=== PATIENT | male | born 1965 | race Caucasian/White ===

== ENCOUNTER 2018-11-01 11:52 | Emergency (ER) | payer BC ==
[~2018-11-01] VITALS: Ht 185.4 cm; Wt 115.7 kg
[~2018-11-01 11:52] MED LIST: STELARA45 MG/0.5
[2018-11-01] MEDS ORDERED: Hydrochloroth12.5 MG PO (13:01)
== END 2018-11-01 13:13 | disposition home or self-care (01) ==
LOC: ER 11:52
DX: S83.8X2A Sprain of other specified parts of left knee, initial encounter (principal); I10 Essential (primary) hypertension; F17.200 Nicotine dependence, unspecified, uncomplicated; Z79.899 Other long term (current) drug therapy; X58.XXXA Exposure to other specified factors, initial encounter
CPT/HCPCS: 73562-LT; 99283-25

== ENCOUNTER 2018-11-29 17:11 | Emergency (ER) | payer BC ==
[~2018-11-29] VITALS: Ht 182.9 cm; Wt 113.4 kg
[~2018-11-29 17:11] MED LIST changes: +Hydrochloroth12.5 MG PO
[2018-11-29] MEDS ORDERED: TREMFYA100 MG/1 M SQ (17:59)
[2018-11-29 19:04] LABS: BASOPHILS ABSOLUTE AUTO 0.04 K/mm3 (0.00-0.23); BASOPHILS PERCENT AUTO 1 % (0-2); EOSINOPHILS ABSOLUTE AUTO 0.12 K/mm3 (0.00-0.68); EOSINOPHILS PERCENT AUTO 2 % (0-6); Hematocrit 45.9 % (37.0-53.0); Hemoglobin 15.9 g/dL (13.5-17.5); IMMATURE GRAN ABSOLUTE AUTO 0.01 K/mm3 (0.00-0.10); IMMATURE GRAN PERCENT AUTO 0 % (0-1); LYMPHOCYTES ABSOLUTE AUTO 1.37 K/mm3 (0.84-5.20); LYMPHOCYTES PERCENT AUTO 23 % (21-46); MONOCYTES ABSOLUTE AUTO 0.45 K/mm3 (0.16-1.47); MONOCYTES PERCENT AUTO 8 % (4-13); Mean Corpuscular HGB 34.1 pg (26.0-34.0); Mean Corpuscular HGB Conc 34.6 g/dL (31.5-36.5); Mean Corpuscular Volume 99 fL (80-100); Mean Platelet Volume 9.6 fL (9.1-12.4); NEUTROPHILS ABSOLUTE AUTO 3.87 K/mm3 (1.96-9.15); NEUTROPHILS PERCENT AUTO 66 % (41-73); Platelet Count 148 K/mm3 (150-400); RDW Coefficient Variation 12.2 % (11.7-14.2); RDW Standard Deviation 44.3 fL (35.1-46.3); Red Blood Cell Count 4.66 M/mm3 (4.30-5.90); White Blood Cell Count 5.86 K/mm3 (4.00-11.30)
[2018-11-29 19:32] LABS: Alanine Aminotransfer (ALT/SGP 86 U/L (12-78); Albumin, Blood 3.6 g/dL (3.4-5.0); Albumin/Globulin Ratio 1.1 (0.8-1.8); Alk Phos 87 U/L (50-136); Anion Gap 6 mmol/L (6-16); Aspartate Aminotrans (AST/SGOT 74 U/L (12-37); Bilirubin, Total 0.6 mg/dL (0.1-1.0); Blood Urea Nitrogen 17 mg/dL (8-24); Bun/Creatinine Ratio 22.7 (12.0-20.0); CO2, Blood 26 mmol/L (21-32); Calcium, Blood 9.3 mg/dL (8.5-10.1); Chloride, Blood 103 mmol/L (98-108); Creatinine, Blood 0.75 mg/dL (0.60-1.20); Globulin, Blood 3.4 g/dL (2.2-4.0); Glomerular Filtration Rate >60 (60-); Glucose, Blood 197 mg/dL (70-99); Potassium, Blood 3.3 mmol/L (3.5-5.5); Sodium, Blood 135 mmol/L (136-145)
[2018-11-29] MEDS ORDERED: Prinivil10 MG PO (22:32)
== END 2018-11-29 22:45 | disposition home or self-care (01) ==
LOC: ER 17:11
PROVIDERS: Physician Assistant
DX: I10 Essential (primary) hypertension (principal); L40.9 Psoriasis, unspecified; F17.200 Nicotine dependence, unspecified, uncomplicated; Z79.899 Other long term (current) drug therapy
CPT/HCPCS: 36415; 80053; 85025; 93005; 93010; 99283-25

== ENCOUNTER 2019-01-21 08:24 | Emergency (ER) | payer BC ==
[~2019-01-21] VITALS: Ht 182.9 cm; Wt 113.4 kg
[~2019-01-21 08:24] MED LIST changes: +Prinivil10 MG PO; +TREMFYA100 MG/1 M SQ
[2019-01-21] MEDS ORDERED: OTEZLA30 MG PO (08:41)
[2019-01-21] MEDS ORDERED: CEFD300 PO (08:42)
[2019-01-21] MEDS ORDERED: CEPH500 PO (09:06)
== END 2019-01-21 09:11 | disposition home or self-care (01) ==
LOC: ER 08:24
DX: L03.115 Cellulitis of right lower limb (principal); I10 Essential (primary) hypertension; F17.210 Nicotine dependence, cigarettes, uncomplicated; Z79.899 Other long term (current) drug therapy
CPT/HCPCS: 99283

== ENCOUNTER 2022-11-20 16:05 | Inpatient (IN) | payer BC ==
[~2022-11-20] VITALS: Ht 185.4 cm; Wt 102.1 kg
[~2022-11-20 16:05] MED LIST changes: +CEFD300 PO; +CEPH500 PO; +OTEZLA30 MG PO
[2022-11-20 17:04] LABS: Influenza A, PCR NEGATIVE (NEGATIVE); Influenza B, PCR NEGATIVE (NEGATIVE); Resp Syncytial Virus, PCR NEGATIVE (NEGATIVE); SARS-Cov-2 (COVID-19) PCR, MMC NEGATIVE (NEGATIVE)
[2022-11-20 17:08] LABS: BASOPHILS ABSOLUTE AUTO 0.06 K/mm3 (0.00-0.23); BASOPHILS PERCENT AUTO 1 % (0-2); EOSINOPHILS ABSOLUTE AUTO 0.04 K/mm3 (0.00-0.68); EOSINOPHILS PERCENT AUTO 0 % (0-6); Hematocrit 41.6 % (37.0-53.0); IMMATURE GRAN ABSOLUTE AUTO 0.04 K/mm3 (0.00-0.10); IMMATURE GRAN PERCENT AUTO 0 % (0-1); LYMPHOCYTES ABSOLUTE AUTO 0.76 K/mm3 (0.84-5.20); LYMPHOCYTES PERCENT AUTO 8 % (21-46); MONOCYTES ABSOLUTE AUTO 0.56 K/mm3 (0.16-1.47); MONOCYTES PERCENT AUTO 6 % (4-13); Mean Corpuscular HGB 35.2 pg (26.0-34.0); Mean Corpuscular HGB Conc 36.1 g/dL (31.5-36.5); Mean Corpuscular Volume 98 fL (80-100); Mean Platelet Volume 9.2 fL (9.1-12.4); NEUTROPHILS ABSOLUTE AUTO 7.77 K/mm3 (1.96-9.15); NEUTROPHILS PERCENT AUTO 84 % (41-73); Platelet Count 122 K/mm3 (150-400); RDW Coefficient Variation 12.3 % (11.7-14.2); RDW Standard Deviation 43.8 fL (35.1-46.3); Red Blood Cell Count 4.26 M/mm3 (4.30-5.90); White Blood Cell Count 9.23 K/mm3 (4.00-11.30)
[2022-11-20 17:24] LABS: Albumin, Blood 3.6 g/dL (3.4-5.0); Bun/Creatinine Ratio 14.3 (12.0-20.0); Calcium, Blood 9.4 mg/dL (8.5-10.1); Creatinine, Blood 0.77 mg/dL (0.60-1.20); Globulin, Blood 3.6 g/dL (2.2-4.0); Total Protein, Blood 7.2 g/dL (6.4-8.2)
[2022-11-20 20:29] LABS: Anti-Xa UFH, PHA Monitoring <0.10 IU/mL; International Normalized Ratio 1.04; Prothrombin Time Results 10.9 Sec (9.7-11.5)
[2022-11-20 23:15] VITALS: BP 157/86
--- NOTE | 2022-11-20 23:15 | NUR ---
ADMISSION REPORT RECIEVED FROM ER NURSE. PATIENT ARRIVES TO PCU 10. HEPARIN GTT STARTED BY ER. PATIENT ABLE TO AMBULATE TO PCU BED WITH NO ASSISTANCE. PATIENT IS ALERT AND ORIENTED x4, ABLE TO MAKE NEEDS KNOWN. VITALS STABLE, PATIENT REPORTS MILD CHEST DISCOMFORT. ON RA WITH O2 SAT >95%. INDEPDENDENT IN THE ROOM. ORIENTED TO ROOM AND CALL LIGHT SYSTEM. EDUCATED PATIENT ON IGNITION RISKS, PATIENT VERBALIZED UNDERSTANDING AND REPORTS NO IGNITION SOURCES.
[2022-11-21] VITALS (9 sets, daily range): BP systolic 109–157; BP diastolic 65–88
[2022-11-21 03:21] LABS: BASOPHILS ABSOLUTE AUTO 0.03 K/mm3 (0.00-0.23); BASOPHILS PERCENT AUTO 1 % (0-2); EOSINOPHILS ABSOLUTE AUTO 0.11 K/mm3 (0.00-0.68); EOSINOPHILS PERCENT AUTO 2 % (0-6); Hematocrit 38.3 % (37.0-53.0); Hemoglobin 13.6 g/dL (13.5-17.5); IMMATURE GRAN ABSOLUTE AUTO 0.03 K/mm3 (0.00-0.10); IMMATURE GRAN PERCENT AUTO 1 % (0-1); LYMPHOCYTES ABSOLUTE AUTO 1.04 K/mm3 (0.84-5.20); LYMPHOCYTES PERCENT AUTO 16 % (21-46); MONOCYTES ABSOLUTE AUTO 0.42 K/mm3 (0.16-1.47); MONOCYTES PERCENT AUTO 6 % (4-13); Mean Corpuscular HGB 35.1 pg (26.0-34.0); Mean Corpuscular HGB Conc 35.5 g/dL (31.5-36.5); Mean Corpuscular Volume 99 fL (80-100); Mean Platelet Volume 9.5 fL (9.1-12.4); NEUTROPHILS ABSOLUTE AUTO 4.96 K/mm3 (1.96-9.15); NEUTROPHILS PERCENT AUTO 75 % (41-73); Platelet Count 99 K/mm3 (150-400); RDW Coefficient Variation 12.3 % (11.7-14.2); RDW Standard Deviation 44.5 fL (35.1-46.3); Red Blood Cell Count 3.87 M/mm3 (4.30-5.90); White Blood Cell Count 6.59 K/mm3 (4.00-11.30)
[2022-11-21 03:40] LABS: Albumin, Blood 2.9 g/dL (3.4-5.0); Albumin/Globulin Ratio 0.8 (0.8-1.8); Bilirubin, Total 1.2 mg/dL (0.1-1.0); Bun/Creatinine Ratio 12.1 (12.0-20.0); Calcium, Blood 8.7 mg/dL (8.5-10.1); Creatinine, Blood 0.75 mg/dL (0.60-1.20); Globulin, Blood 3.7 g/dL (2.2-4.0); Potassium, Blood 3.5 mmol/L (3.5-5.5); Total Protein, Blood 6.6 g/dL (6.4-8.2)
--- NOTE | 2022-11-21 05:52 | NUR ---
SHIFT SUMMARY PATIENT ALERT AND ORIENTED x4, ABLE TO MAKE NEEDS KNOWN TO STAFF. BP STABLE, TELE READING SR-ST 90s-100s, ON RA WITH O2 SAT >95%. REPORTED MILD CHEST PAIN ON ADMISSION BUT NONE SINCE. HEPARIN GTT INFUSING PER EMAR. PATIENT INDEPENDENT IN THE ROOM. AMBULATING TO BATHROOM WITHOUT ASSSISTANCE, ADEQUATE OUTPUT. NPO SINCE 0000 PENDING CARDIOLOGY CONSULT. NO OTHER CHANGES SINCE ADMISSION. WILL REPORT TO DAY SHIFT RN.
[2022-11-21 08:12] LABS: CHOL/HDL RATIO 2.1; Cholesterol 136 mg/dL (50-200); HDL Cholesterol 66 mg/dL (>39); LDL/HDL RATIO 0.8; Low Density Lipoprotein Chol 50 mg/dL (0-110); Triglycerides 99 mg/dL (30-160); Very Low Density Lipoprot Chol 19 mg/dL (6-32)
--- NOTE | 2022-11-21 14:25 | NUR ---
POST ANGIO PT RETURNED FROM HIS ANGIO AT ABOUT 1100. HE HAS A RIGHT RADIAL SITE WITH 11 CC IN THE TR BAND. NO SIGNS OF HEMATOMA, BLEEDING, SWELLING, OR N/T. WE WERE TOLD TO WAIT AT LEAST THREE HOURS BEFORE DEFLATING DUE TO AN ACT >300. AT 1415 I STARTED TO DEFLATE THE BALLOON. EDUCATION PROVIDED. SEE NOTES FOR ANY UPDATES.
--- NOTE | 2022-11-21 16:38 | NUR ---
TR BAND RECOVERED. SLIGHT OOZING AT THE SIGHT. NO BLEEDING, HEMATOMA, BRUISING, OR PAIN. SITE CLEANED AND A TEGADERM WAS PLACED. ARM BOARD IN PLACE.
--- NOTE | 2022-11-21 17:31 | NUR ---
SHIFT SUMMARY PT IS A&OX4, IND IN THE ROOM, CIWA-0, AND HE HAS BEEN VERY PLEASENT. HE WENT TO THE CONVERSION MAN THIS MORNING FOR A ANGIOGRAM AND HE OBTAINED A STENT TO THE RCA. TR BAND IS FULLY RECOVERED. AN ECHO WAS DONE THIS MORNING PRIOR TO THE ANGIO. ON TELE THE PT HAS BEEN SR 80'S-90'S ON TELE. HE HAS BEEN ON RA WITH SP02 >95%. NO REPORTS OF ANGINA OR SOB. PT IS A DAILY SMOKER SO A NICOTINE PATCH WAS PROVIDED. FIRE IRGNITION RISK WAS ASSESSED AND EDUCATION WAS PROVIDED. NO KNOWN IGNITION SOURCES.
[2022-11-22 00:36] VITALS: BP 94/62
[2022-11-22 04:22] VITALS: BP 118/72
[2022-11-22 04:53] LABS: BASOPHILS ABSOLUTE AUTO 0.03 K/mm3 (0.00-0.23); BASOPHILS PERCENT AUTO 1 % (0-2); EOSINOPHILS ABSOLUTE AUTO 0.15 K/mm3 (0.00-0.68); EOSINOPHILS PERCENT AUTO 3 % (0-6); Hematocrit 38.7 % (37.0-53.0); Hemoglobin 13.9 g/dL (13.5-17.5); IMMATURE GRAN ABSOLUTE AUTO 0.02 K/mm3 (0.00-0.10); IMMATURE GRAN PERCENT AUTO 0 % (0-1); LYMPHOCYTES ABSOLUTE AUTO 0.86 K/mm3 (0.84-5.20); LYMPHOCYTES PERCENT AUTO 17 % (21-46); MONOCYTES ABSOLUTE AUTO 0.36 K/mm3 (0.16-1.47); MONOCYTES PERCENT AUTO 7 % (4-13); Mean Corpuscular HGB 35.6 pg (26.0-34.0); Mean Corpuscular HGB Conc 35.9 g/dL (31.5-36.5); Mean Corpuscular Volume 99 fL (80-100); Mean Platelet Volume 9.3 fL (9.1-12.4); NEUTROPHILS ABSOLUTE AUTO 3.55 K/mm3 (1.96-9.15); NEUTROPHILS PERCENT AUTO 72 % (41-73); Platelet Count 104 K/mm3 (150-400); RDW Coefficient Variation 12.6 % (11.7-14.2); White Blood Cell Count 4.97 K/mm3 (4.00-11.30)
[2022-11-22 05:30] LABS: Bun/Creatinine Ratio 14.2 (12.0-20.0); Calcium, Blood 8.6 mg/dL (8.5-10.1); Creatinine, Blood 0.77 mg/dL (0.60-1.20); Potassium, Blood 3.3 mmol/L (3.5-5.5)
--- NOTE | 2022-11-22 06:02 | NUR ---
SHIFT SUMMARY PATIENT ALERT AND ORIENTED x4, INDEPENDENT IN THE ROOM, ABLE TO MAKE NEEDS KNOWN TO STAFF. CIWA NEGATIVE DURING THE NIGHT. VITALS STABLE T/O NIGHT, PATIENT REMAINED ON RA WITH O2 SAT >95%. ANGIO SITE TO RIGHT WRIST, SOFT, TEGADERM IN PLACE IS C/D/I, NO SIGNS OF HEMATOMA, ARM BOARD IN PLACE. AMBULATING TO BATHROOM INDEPENDENTLY WITH ADEQUATE OUTPUT. NO IGNITION SOURCES NOTED, PATIENT PROVIDED WITH NICOTINE REPLACEMENT DURING PREVIOUS SHIFT. NO OTHER SIGNIFICANT CHANGES, WILL REPORT TO DAY SHIFT RN.
[2022-11-22 07:24] VITALS: BP 151/91
[2022-11-22 09:45] VITALS: BP 127/46
[2022-11-22 11:40] VITALS: BP 133/84
[2022-11-22] MEDS ORDERED: LISI5 PO (12:51)
[2022-11-22] MEDS ORDERED: ASPI81CH PO (12:51)
[2022-11-22] MEDS ORDERED: METO25ER PO (12:51)
[2022-11-22] MEDS ORDERED: ATOR10 PO (12:51)
[2022-11-22] MEDS ORDERED: NICO21TP TOP (12:51)
[2022-11-22] MEDS ORDERED: FURO20 PO (12:51)
[2022-11-22] MEDS ORDERED: CLOP75 PO (12:51)
--- NOTE | 2022-11-22 13:22 | NUR ---
DISCHARGE PT DISCHARGED FROM UNIT AT 1318. BILATERAL IV CATHETERS REMOVED BY THIS RN, CATHETER TIPS INTACT. VSS. PT ABLE TO DRESS SELF INDEPENDENTLY. DISCHARGE INSTRUCTIONS AND EDUCATION REVIEWED AND DISCUSSED WITH PT BY THIS RN. PT VOICED UNDERSTANDING OF INFORMATION. PT AMBULATED TO PRIVATE VEHICLE INDEPENDENTLY.
== END 2022-11-22 13:18 | disposition home or self-care (01) | DRG 247 ==
LOC: ER 16:05 → PCU 16:06
PROVIDERS: Emergency Medicine; Internal Medicine Cardiovascular Disease; Student in an Organized Health Care Education/Training Program; ADMIT Internal Medicine
PROC: 027034Z Dilation of Coronary Artery, One Artery with Drug-eluting Intraluminal Device, Percutaneous Approach (ICD-10-PCS; principal; 2022-11-21)
PROC: B2111ZZ Fluoroscopy of Multiple Coronary Arteries using Low Osmolar Contrast (ICD-10-PCS; 2022-11-21)
PROC: 4A023N7 Measurement of Cardiac Sampling and Pressure, Left Heart, Percutaneous Approach (ICD-10-PCS; 2022-11-21)
PROC: B241ZZ3 Ultrasonography of Multiple Coronary Arteries, Intravascular (ICD-10-PCS; 2022-11-21)
DX: I21.4 Non-ST elevation (NSTEMI) myocardial infarction (principal); I50.30 Unspecified diastolic (congestive) heart failure; F17.210 Nicotine dependence, cigarettes, uncomplicated; E87.6 Hypokalemia; D69.6 Thrombocytopenia, unspecified; R00.2 Palpitations; L40.9 Psoriasis, unspecified; I35.0 Nonrheumatic aortic (valve) stenosis; I11.0 Hypertensive heart disease with heart failure; E78.5 Hyperlipidemia, unspecified; I49.3 Ventricular premature depolarization; R73.01 Impaired fasting glucose; R74.01 Elevation of levels of liver transaminase levels; F10.20 Alcohol dependence, uncomplicated; Z20.822 Contact with and (suspected) exposure to COVID-19; I25.2 Old myocardial infarction; Z95.5 Presence of coronary angioplasty implant and graft; Z71.6 Tobacco abuse counseling; Z95.1 Presence of aortocoronary bypass graft; E66.3 Overweight; Z88.8 Allergy status to other drugs, medicaments and biological substances; Z91.048 Other nonmedicinal substance allergy status; Z79.811 Long term (current) use of aromatase inhibitors; Z68.29 Body mass index [BMI] 29.0-29.9, adult
CPT/HCPCS: 0241U; 36415; 71046; 76937; 80048; 80053; 80061; 83036; 84443; 84450; 84460; 84484; 85025; 85347; 85520; 85610; 85730; 92978; 93005; 93010; 93306; 93458; 96365; 96375; 96376; 99152; 99153; 99285-25; A9270; C1725; C1753; C1769; C1874; C1887; C1894; C9600; G0378; J0461; J1644; J1940; J2250; J3010; J7030; J7050; Q9967

== ENCOUNTER 2023-07-03 17:31 | Emergency (ER) | payer BC ==
[~2023-07-03] VITALS: Ht 185.4 cm; Wt 106.6 kg
[~2023-07-03 17:31] MED LIST changes: +ASPI81CH PO; +ATOR10 PO; +CLOP75 PO; +FURO20 PO; +LISI5 PO; +METO25ER PO; +NICO21TP TOP
[2023-07-03] MEDS ORDERED: Oxymetazoline 0.05% Nasal Relief Spray 15mL BTL ONE (19:45)
[2023-07-03 19:49] VITALS: BP 171/95
== END 2023-07-03 20:24 | disposition home or self-care (01) ==
LOC: ER 17:31
DX: R04.0 Epistaxis (principal); Z79.01 Long term (current) use of anticoagulants; Z79.82 Long term (current) use of aspirin; Z95.5 Presence of coronary angioplasty implant and graft
CPT/HCPCS: 30903; 99283-25; A9270

== ENCOUNTER 2023-07-05 09:31 | Emergency (ER) | payer BC ==
[~2023-07-05] VITALS: Ht 185.4 cm; Wt 104.3 kg
[2023-07-05 10:12] VITALS: BP 172/93
[2023-07-05] MEDS ORDERED: Silver Nitr/Potassium Nitrate 1 EA APPL TOP ONE (10:55)
[2023-07-05] MEDS ORDERED: Oxymetazoline 0.05% Nasal Relief Spray 15mL BTL ONE (10:55)
== END 2023-07-05 12:03 | disposition home or self-care (01) ==
LOC: ER 09:31
DX: R04.0 Epistaxis (principal); I10 Essential (primary) hypertension; L40.9 Psoriasis, unspecified; F17.210 Nicotine dependence, cigarettes, uncomplicated; Z88.8 Allergy status to other drugs, medicaments and biological substances; Z91.048 Other nonmedicinal substance allergy status; Z79.899 Other long term (current) drug therapy; Z79.82 Long term (current) use of aspirin; Z79.02 Long term (current) use of antithrombotics/antiplatelets
CPT/HCPCS: 30901; 99283-25; A9270

== ENCOUNTER 2023-10-30 01:17 | Inpatient (IN) | payer BC ==
[~2023-10-30] VITALS: Ht 185.4 cm; Wt 104.4 kg
[2023-10-30] VITALS (7 sets, daily range): BP systolic 116–159; BP diastolic 67–108
[~2023-10-30 01:17] MED LIST changes: +ELIQUIS5 M2 PO
[2023-10-30] MEDS ORDERED: Metoprolol Tartrate 1 MG/ML 5 ML VIAL IV ONE (01:55)
[2023-10-30 02:07] LABS: Albumin, Blood 3.2 g/dL (3.4-5.0); Albumin/Globulin Ratio 0.9 (0.8-1.8); Bilirubin, Total 0.9 mg/dL (0.1-1.0); Bun/Creatinine Ratio 18.6 (12.0-20.0); Calcium, Blood 8.9 mg/dL (8.5-10.1); Creatinine, Blood 0.81 mg/dL (0.60-1.20); Globulin, Blood 3.7 g/dL (2.2-4.0); Magnesium, Blood 1.8 mg/dL (1.6-2.4); Potassium, Blood 4.4 mmol/L (3.5-5.5); Total Protein, Blood 6.9 g/dL (6.4-8.2)
[2023-10-30 02:21] LABS: BASOPHILS ABSOLUTE AUTO 0.04 K/mm3 (0.00-0.23); BASOPHILS PERCENT AUTO 1 % (0-2); EOSINOPHILS ABSOLUTE AUTO 0.16 K/mm3 (0.00-0.68); EOSINOPHILS PERCENT AUTO 4 % (0-6); Hematocrit 34.3 % (37.0-53.0); IMMATURE GRAN ABSOLUTE AUTO 0.01 K/mm3 (0.00-0.10); IMMATURE GRAN PERCENT AUTO 0 % (0-1); LYMPHOCYTES ABSOLUTE AUTO 1.07 K/mm3 (0.84-5.20); LYMPHOCYTES PERCENT AUTO 29 % (21-46); MONOCYTES ABSOLUTE AUTO 0.32 K/mm3 (0.16-1.47); MONOCYTES PERCENT AUTO 9 % (4-13); Mean Corpuscular HGB 35.6 pg (26.0-34.0); Mean Corpuscular Volume 102 fL (80-100); Mean Platelet Volume 10.1 fL (9.1-12.4); NEUTROPHILS ABSOLUTE AUTO 2.04 K/mm3 (1.96-9.15); NEUTROPHILS PERCENT AUTO 56 % (41-73); Platelet Count 78 K/mm3 (150-400); RDW Coefficient Variation 15.9 % (11.7-14.2); RDW Standard Deviation 60.3 fL (35.1-46.3); Red Blood Cell Count 3.37 M/mm3 (4.30-5.90); White Blood Cell Count 3.64 K/mm3 (4.00-11.30)
[2023-10-30] MEDS ORDERED: Aspirin 325 MG Tab PO ONE (04:55)
[2023-10-30] MEDS ORDERED: ELIQUIS5 M2 PO (05:54)
[2023-10-30] MEDS ORDERED: ChlordiazePOXIDE 25 MG Cap PO PRN ×2 (06:00)
[2023-10-30] MEDS ORDERED: LORazepam 2 MG/ML 1ML Injection IV PRN ×2 (06:00)
[2023-10-30] MEDS ORDERED: Folic Acid 1 MG in NS 50 ML IV SCH (07:30)
[2023-10-30] MEDS ORDERED: Thiamine HCl 100 MG in NS 50 ML IV SCH (07:30)
[2023-10-30] MEDS ORDERED: Metoprolol Succinate 25 MG TABCR PO SCH ×2 (09:00)
[2023-10-30] MEDS ORDERED: Apixaban 5 MG Tab PO SCH (09:00)
[2023-10-30] MEDS ORDERED: Digoxin 0.25 MG in Dextrose 5% 100 ML IV SCH (09:00)
[2023-10-30] MEDS ORDERED: Digoxin 0.25 MG/ML 2ML Amp IV SCH (09:00)
[2023-10-30] MEDS ORDERED: Lisinopril 5 MG Tab PO SCH (09:00)
[2023-10-30] MEDS ORDERED: Furosemide 10 MG/ML 4ML Vial IV SCH (09:00)
[2023-10-30] MEDS ORDERED: Nicotine 21 MG PATCH TOP SCH (09:00)
[2023-10-30] MEDS ORDERED: Aspirin 81 MG Chew PO SCH (09:00)
[2023-10-30] MEDS ORDERED: Empagliflozin 10 MG TAB PO SCH (09:00)
[2023-10-30] MEDS ORDERED: Albuterol 2.5 MG/3 ML VIAL INH PRN (15:15)
[2023-10-30] MEDS ORDERED: Mag Sulfate 1 GM/D5% 100ML 100 ML IV ONE (16:10)
--- NOTE | 2023-10-30 17:14 | NUR ---
ARRIVAL TO PCU 11/SHIFT SUMMARY PT ARRIVED TO PCU 11 AT APPROXIMATELY 1500. PT TRANSFERED FROM ER [facility] TO HOSPITAL BED IND. ARRIVED ON DILT gtt @ 10, AFIB 110's. BP STALBE, DENIES CP/PRESSURE. SpO2> 92% RA, DENIES SOB. A&Ox4, ORIENTED TO DEEPTI LIGHT/UNIT, CALLS AND COMMUNICATES NEEDS APPROPRIATELY. IND IN ROOM. CONTINENT OF URINE, USING URINAL AT BEDSIDE. HR UP TO 150 WHEN USING URINAL, BACK DOWN TO 100's QUICKLY AFTER RESTING. NO C/O PAIN. SEE CRITICAL CARE FLOWSHEET FOR DILT gtt TITRATION. NO OTHER EVENTS, WILL REPORT TO ONCOMING RN.
[2023-10-30] MEDS ORDERED: Cephalexin Monohydrate 500 MG Cap PO SCH (21:00)
[2023-10-30] MEDS ORDERED: Atorvastatin 10 MG Tab PO SCH (21:00)
[2023-10-31] VITALS (7 sets, daily range): BP systolic 117–148; BP diastolic 79–91
[2023-10-31] MEDS ORDERED: Metoprolol Succinate 50 MG TABCR PO SCH ×2 (10:00→20:30)
[2023-10-31 10:10] LABS: BASOPHILS ABSOLUTE AUTO 0.04 K/mm3 (0.00-0.23); BASOPHILS PERCENT AUTO 1 % (0-2); EOSINOPHILS ABSOLUTE AUTO 0.11 K/mm3 (0.00-0.68); EOSINOPHILS PERCENT AUTO 3 % (0-6); Hematocrit 32.8 % (37.0-53.0); Hemoglobin 11.1 g/dL (13.5-17.5); IMMATURE GRAN ABSOLUTE AUTO 0.01 K/mm3 (0.00-0.10); IMMATURE GRAN PERCENT AUTO 0 % (0-1); LYMPHOCYTES ABSOLUTE AUTO 0.71 K/mm3 (0.84-5.20); LYMPHOCYTES PERCENT AUTO 20 % (21-46); MONOCYTES ABSOLUTE AUTO 0.39 K/mm3 (0.16-1.47); MONOCYTES PERCENT AUTO 11 % (4-13); Mean Corpuscular HGB 34.3 pg (26.0-34.0); Mean Corpuscular HGB Conc 33.8 g/dL (31.5-36.5); Mean Corpuscular Volume 101 fL (80-100); Mean Platelet Volume 10.2 fL (9.1-12.4); NEUTROPHILS ABSOLUTE AUTO 2.29 K/mm3 (1.96-9.15); NEUTROPHILS PERCENT AUTO 65 % (41-73); Platelet Count 75 K/mm3 (150-400); RDW Coefficient Variation 15.9 % (11.7-14.2); RDW Standard Deviation 59.2 fL (35.1-46.3); Red Blood Cell Count 3.24 M/mm3 (4.30-5.90); White Blood Cell Count 3.55 K/mm3 (4.00-11.30)
[2023-10-31 10:19] LABS: Albumin, Blood 2.9 g/dL (3.4-5.0); Albumin/Globulin Ratio 0.9 (0.8-1.8); Bilirubin, Total 1.3 mg/dL (0.1-1.0); Bun/Creatinine Ratio 12.8 (12.0-20.0); Calcium, Blood 8.5 mg/dL (8.5-10.1); Creatinine, Blood 0.78 mg/dL (0.60-1.20); Globulin, Blood 3.3 g/dL (2.2-4.0); Magnesium, Blood 1.7 mg/dL (1.6-2.4); Phosphorus, Blood 2.6 mg/dL (2.5-4.9); Potassium, Blood 3.5 mmol/L (3.5-5.5); Total Protein, Blood 6.2 g/dL (6.4-8.2)
[2023-10-31] MEDS ORDERED: Magnesium Sulf 2 GM/Water 50ML 50 ML IV ONE (13:10)
--- NOTE | 2023-10-31 17:36 | NUR ---
SHIFT SUMMARY A&Ox4, CALLS AND COMMUNICATES NEEDS APPROPRIATELY. IND IN ROOM. CONTINENT OF URINE, USING URINAL IN BATHROOM. BP STABLE, AFIB 90-110's AT REST, UP TO 130's WITH ACTIVITY, BACK DOWN TO 100's QUICKLY AFTER RESTING. DENIES CP/PRESSURE. SpO2> 92% RA, DENIES SOB. NO C/O PAIN. NO OTHER EVENTS, WILL REPORT TO ONCOMING RN.
[2023-11-01 03:44] VITALS: BP 158/99
[2023-11-01 03:57] LABS: BASOPHILS ABSOLUTE AUTO 0.06 K/mm3 (0.00-0.23); BASOPHILS PERCENT AUTO 1 % (0-2); EOSINOPHILS ABSOLUTE AUTO 0.12 K/mm3 (0.00-0.68); EOSINOPHILS PERCENT AUTO 2 % (0-6); Hematocrit 38.1 % (37.0-53.0); Hemoglobin 13.1 g/dL (13.5-17.5); IMMATURE GRAN ABSOLUTE AUTO 0.02 K/mm3 (0.00-0.10); IMMATURE GRAN PERCENT AUTO 0 % (0-1); LYMPHOCYTES ABSOLUTE AUTO 0.77 K/mm3 (0.84-5.20); LYMPHOCYTES PERCENT AUTO 16 % (21-46); MONOCYTES ABSOLUTE AUTO 0.53 K/mm3 (0.16-1.47); MONOCYTES PERCENT AUTO 11 % (4-13); Mean Corpuscular HGB 35.2 pg (26.0-34.0); Mean Corpuscular HGB Conc 34.4 g/dL (31.5-36.5); Mean Corpuscular Volume 102 fL (80-100); Mean Platelet Volume 9.6 fL (9.1-12.4); NEUTROPHILS ABSOLUTE AUTO 3.46 K/mm3 (1.96-9.15); NEUTROPHILS PERCENT AUTO 70 % (41-73); Platelet Count 88 K/mm3 (150-400); RDW Coefficient Variation 16.1 % (11.7-14.2); RDW Standard Deviation 60.2 fL (35.1-46.3); Red Blood Cell Count 3.72 M/mm3 (4.30-5.90); White Blood Cell Count 4.96 K/mm3 (4.00-11.30)
[2023-11-01 04:17] LABS: Albumin, Blood 3.4 g/dL (3.4-5.0); Albumin/Globulin Ratio 0.9 (0.8-1.8); Bilirubin, Total 1.7 mg/dL (0.1-1.0); Bun/Creatinine Ratio 11.5 (12.0-20.0); Creatinine, Blood 0.87 mg/dL (0.60-1.20); Globulin, Blood 3.9 g/dL (2.2-4.0); Magnesium, Blood 2.2 mg/dL (1.6-2.4); Potassium, Blood 3.9 mmol/L (3.5-5.5); Total Protein, Blood 7.3 g/dL (6.4-8.2)
--- NOTE | 2023-11-01 04:47 | NUR ---
PT A/OX4 USES THE CALL LIGHT APPROPRIATELY TO MAKE NEEDS KNOWN. CIWAS HAVE BEEN NEGATIVE. HE IS IN AFIB WITH RATE INCREASING WITH ACTIVITY AND THEN RECOVERS QUICKLY WITH REST. AT APPROX 2AM HE FLIPPED INTO AFLUTTER AND BACK TO AFIB. HE STATED HE FELT PALPATATIONS. HE IS ON RA WITH SPO2 >95%, DENIES SOB. HE IS IND IN ROOM. HE DENIES PAIN. WILL CONTINUE TO MONITOR AND REPORT TO ONCOMING RN
[2023-11-01 08:43] VITALS: BP 124/80
[2023-11-01] MEDS ORDERED: Folic Acid 1 MG TAB PO SCH (09:00)
[2023-11-01] MEDS ORDERED: Multivitamins-Minerals Liquid 15 ML Oral Syringe PO SCH (09:00)
[2023-11-01] MEDS ORDERED: Thiamine HCl 100 MG Tab PO SCH (09:00)
[2023-11-01] MEDS ORDERED: Lisinopril 10 MG Tab PO SCH (09:00)
[2023-11-01] MEDS ORDERED: Clopidogrel Bisulfate 75 MG Tab PO SCH (09:00)
[2023-11-01] MEDS ORDERED: ChlordiazePOXIDE 25 MG Cap PO ONE (11:10)
[2023-11-01 13:52] VITALS: BP 115/62
[2023-11-01] MEDS ORDERED: ELIQUIS5 M2 PO (14:35)
[2023-11-01] MEDS ORDERED: CHLO25 PO (14:37)
[2023-11-01] MEDS ORDERED: Hair, Skin & N1 EACH PO (14:38)
[2023-11-01] MEDS ORDERED: JARDIANCE10 MG PO (14:38)
[2023-11-01] MEDS ORDERED: FOLI1 PO (14:38)
[2023-11-01] MEDS ORDERED: NICO21TP TOP (14:38)
[2023-11-01] MEDS ORDERED: B-1100 M1 PO (14:39)
[2023-11-01] MEDS ORDERED: Naltrexone HCl50 MG PO (14:40)
--- NOTE | 2023-11-01 15:25 | NUR ---
Discharge. Pt discharged at 1512, all discharge instructions given prior to discharge, PIV removed. Pt verbalized understanding of all discharge information given. All personal belongings sent home with patient. Pt walked out of unit with spouse.
[2023-11-02] MEDS ORDERED: Multivitamins 1 Tab PO SCH (09:00)
== END 2023-11-01 15:15 | disposition home or self-care (01) | DRG 281 ==
LOC: ER 01:17 → ERHOLD 01:18 → PCU 14:55
PROVIDERS: Hospitalist; Student in an Organized Health Care Education/Training Program; ADMIT Family Medicine
DX: I48.0 Paroxysmal atrial fibrillation (principal); D61.818 Other pancytopenia; I21.A1 Myocardial infarction type 2; I50.32 Chronic diastolic (congestive) heart failure; L03.116 Cellulitis of left lower limb; F10.20 Alcohol dependence, uncomplicated; I25.10 Atherosclerotic heart disease of native coronary artery without angina pectoris; F17.210 Nicotine dependence, cigarettes, uncomplicated; L40.9 Psoriasis, unspecified; I35.0 Nonrheumatic aortic (valve) stenosis; D69.59 Other secondary thrombocytopenia; I11.0 Hypertensive heart disease with heart failure; D53.9 Nutritional anemia, unspecified; Z91.148 Patient's other noncompliance with medication regimen for other reason; Z88.8 Allergy status to other drugs, medicaments and biological substances; Z91.048 Other nonmedicinal substance allergy status; Z79.01 Long term (current) use of anticoagulants; Z79.02 Long term (current) use of antithrombotics/antiplatelets; Z79.899 Other long term (current) drug therapy; Z79.82 Long term (current) use of aspirin; I25.2 Old myocardial infarction; Z95.5 Presence of coronary angioplasty implant and graft
CPT/HCPCS: 36415; 71046; 71260; 73552; 80053; 82607; 82746; 83690; 83735; 83880; 84100; 84484; 85025; 93005; 93010; 93306; 93970; 94640; 94664; 94760; 94762; 96365; 96365-59; 96366; 96368; 96375; 96375-59; 96376; 99285-25; A9270; G0378; J1160; J1940; J3411; J3475; Q9967

== ENCOUNTER 2024-04-07 09:03 | Inpatient (IN) | payer BC ==
[~2024-04-07] VITALS: Ht 185.4 cm; Wt 116.9 kg
[~2024-04-07 09:03] MED LIST changes: +B-1100 M1 PO; +CHLO25 PO; +FOLI1 PO; +Hair, Skin & N1 EACH PO; +JARDIANCE10 MG PO; +Naltrexone HCl50 MG PO
[2024-04-07 11:08] LABS: BASOPHILS ABSOLUTE AUTO 0.01 K/mm3 (0.00-0.23); BASOPHILS PERCENT AUTO 0 % (0-2); EOSINOPHILS ABSOLUTE AUTO 0.04 K/mm3 (0.00-0.68); EOSINOPHILS PERCENT AUTO 1 % (0-6); IMMATURE GRAN ABSOLUTE AUTO 0.02 K/mm3 (0.00-0.10); IMMATURE GRAN PERCENT AUTO 1 % (0-1); LYMPHOCYTES ABSOLUTE AUTO 0.68 K/mm3 (0.84-5.20); LYMPHOCYTES PERCENT AUTO 19 % (21-46); MONOCYTES ABSOLUTE AUTO 0.46 K/mm3 (0.16-1.47); MONOCYTES PERCENT AUTO 13 % (4-13); Mean Corpuscular HGB 29.9 pg (26.0-34.0); Mean Corpuscular HGB Conc 31.3 g/dL (31.5-36.5); Mean Corpuscular Volume 96 fL (80-100); Mean Platelet Volume 10.4 fL (9.1-12.4); NEUTROPHILS ABSOLUTE AUTO 2.41 K/mm3 (1.96-9.15); NEUTROPHILS PERCENT AUTO 67 % (41-73); Platelet Count 109 K/mm3 (150-400); RDW Coefficient Variation 16.7 % (11.7-14.2); Red Blood Cell Count 1.84 M/mm3 (4.30-5.90); White Blood Cell Count 3.62 K/mm3 (4.00-11.30)
[2024-04-07 11:16] LABS: Hematocrit 17.6 % (37.0-53.0)
[2024-04-07] MEDS ORDERED: TORSE20 PO (11:22)
[2024-04-07] MEDS ORDERED: Betapace120 MG PO (11:23)
[2024-04-07 11:31] LABS: Hemoglobin 5.5 g/dL (13.5-17.5)
[2024-04-07 11:32] LABS: Albumin, Blood 2.9 g/dL (3.4-5.0); Albumin/Globulin Ratio 0.8 (0.8-1.8); Bilirubin, Total 0.8 mg/dL (0.1-1.0); Bun/Creatinine Ratio 38.9 (12.0-20.0); Calcium, Blood 8.8 mg/dL (8.5-10.1); Creatinine, Blood 2.47 mg/dL (0.60-1.20); Globulin, Blood 3.8 g/dL (2.2-4.0); Potassium, Blood 4.5 mmol/L (3.5-5.5); Total Protein, Blood 6.7 g/dL (6.4-8.2)
[2024-04-07] MEDS ORDERED: NS 1,000 ML IV SCH (12:05)
[2024-04-07] MEDS ORDERED: FLU VACC TS2024-25(6MOS UP)/PF 45 MCG/0.5 ML SYRINGE IM SCH (13:35)
[2024-04-07 13:42] LABS: International Normalized Ratio 1.23
[2024-04-07 14:00] LABS: Percent Saturation 3.4 % (20.0-50.0)
[2024-04-07] MEDS ORDERED: ChlordiazePOXIDE 25 MG Cap PO PRN ×2 (14:10)
[2024-04-07] MEDS ORDERED: LORazepam 2 MG/ML 1ML Injection IV PRN (14:10)
[2024-04-07] MEDS ORDERED: Pantoprazole Sodium 40 MG Tab PO SCH (16:30)
[2024-04-07] MEDS ORDERED: FURO20 PO (19:34)
[2024-04-07] MEDS ORDERED: Naltrexone HCl50 MG PO (19:35)
[2024-04-07] MEDS ORDERED: ATOR40TA PO (19:36)
[2024-04-07] MEDS ORDERED: Prinivil10 MG PO (19:37)
[2024-04-07 20:17] VITALS: BP 131/66
[2024-04-07] MEDS ORDERED: Sotalol HCl 80 MG Tab PO SCH (21:00)
[2024-04-07] MEDS ORDERED: Atorvastatin 10 MG Tab PO SCH (21:00)
[2024-04-07] MEDS ORDERED: Apixaban 5 MG Tab PO SCH (21:00)
[2024-04-08 03:12] VITALS: BP 99/62
--- NOTE | 2024-04-08 05:20 | NUR ---
Pt admitted from ED with LISA. Pt A&O x4, independent, VS WNL, tele NSR. denies pain, using urinal d/t 24 hr urine, which began at 2350 on 04/07. CWA 0 this am, denies any issue. Awaiting labs this am to check Hgb.
[2024-04-08 06:20] LABS: BASOPHILS ABSOLUTE AUTO 0.01 K/mm3 (0.00-0.23); BASOPHILS PERCENT AUTO 0 % (0-2); EOSINOPHILS ABSOLUTE AUTO 0.05 K/mm3 (0.00-0.68); EOSINOPHILS PERCENT AUTO 2 % (0-6); Hematocrit 20.6 % (37.0-53.0); Hemoglobin 6.6 g/dL (13.5-17.5); IMMATURE GRAN ABSOLUTE AUTO 0.01 K/mm3 (0.00-0.10); IMMATURE GRAN PERCENT AUTO 0 % (0-1); LYMPHOCYTES PERCENT AUTO 23 % (21-46); MONOCYTES ABSOLUTE AUTO 0.48 K/mm3 (0.16-1.47); MONOCYTES PERCENT AUTO 16 % (4-13); Mean Corpuscular HGB 29.6 pg (26.0-34.0); Mean Corpuscular Volume 92 fL (80-100); NEUTROPHILS ABSOLUTE AUTO 1.84 K/mm3 (1.96-9.15); NEUTROPHILS PERCENT AUTO 60 % (41-73); Platelet Count 104 K/mm3 (150-400); RDW Coefficient Variation 16.7 % (11.7-14.2); RDW Standard Deviation 54.9 fL (35.1-46.3); Red Blood Cell Count 2.23 M/mm3 (4.30-5.90); White Blood Cell Count 3.09 K/mm3 (4.00-11.30)
--- NOTE | 2024-04-08 06:28 | NUR ---
lab reveal hgb 6.6, MD paged.
[2024-04-08 06:36] LABS: International Normalized Ratio 1.24; Prothrombin Time Results 13.1 Sec (9.7-11.5)
[2024-04-08 07:17] VITALS: BP 116/65
[2024-04-08 07:33] LABS: Magnesium, Blood 1.8 mg/dL (1.6-2.4)
[2024-04-08 07:46] LABS: Albumin, Blood 2.8 g/dL (3.4-5.0); Albumin/Globulin Ratio 0.8 (0.8-1.8); Bilirubin, Total 1.2 mg/dL (0.1-1.0); Calcium, Blood 8.5 mg/dL (8.5-10.1); Creatinine, Blood 1.87 mg/dL (0.60-1.20); Globulin, Blood 3.7 g/dL (2.2-4.0); Phosphorus, Blood 4.7 mg/dL (2.5-4.9); Potassium, Blood 4.3 mmol/L (3.5-5.5); Total Protein, Blood 6.5 g/dL (6.4-8.2)
[2024-04-08] MEDS ORDERED: Nicotine 21 MG PATCH TOP SCH (09:00)
[2024-04-08] MEDS ORDERED: Folic Acid 1 MG TAB PO SCH (09:00)
[2024-04-08] MEDS ORDERED: Bumetanide 0.25 MG/ML 4ML ViaL IV SCH (09:00)
[2024-04-08] MEDS ORDERED: Thiamine HCl 100 MG Tab PO SCH (09:00)
[2024-04-08] MEDS ORDERED: Clopidogrel Bisulfate 75 MG Tab PO SCH (09:00)
[2024-04-08] MEDS ORDERED: Polyethylene Glycol 3350 17 gm PO PRN (13:10)
[2024-04-08 13:30] LABS: BASOPHILS ABSOLUTE AUTO 0.02 K/mm3 (0.00-0.23); BASOPHILS PERCENT AUTO 1 % (0-2); EOSINOPHILS ABSOLUTE AUTO 0.04 K/mm3 (0.00-0.68); EOSINOPHILS PERCENT AUTO 1 % (0-6); Hematocrit 22.3 % (37.0-53.0); IMMATURE GRAN ABSOLUTE AUTO 0.01 K/mm3 (0.00-0.10); IMMATURE GRAN PERCENT AUTO 0 % (0-1); LYMPHOCYTES ABSOLUTE AUTO 0.57 K/mm3 (0.84-5.20); LYMPHOCYTES PERCENT AUTO 17 % (21-46); MONOCYTES ABSOLUTE AUTO 0.58 K/mm3 (0.16-1.47); MONOCYTES PERCENT AUTO 18 % (4-13); Mean Corpuscular HGB 29.2 pg (26.0-34.0); Mean Corpuscular HGB Conc 31.4 g/dL (31.5-36.5); Mean Corpuscular Volume 93 fL (80-100); Mean Platelet Volume 9.7 fL (9.1-12.4); NEUTROPHILS ABSOLUTE AUTO 2.08 K/mm3 (1.96-9.15); NEUTROPHILS PERCENT AUTO 63 % (41-73); Platelet Count 109 K/mm3 (150-400); RDW Coefficient Variation 17.1 % (11.7-14.2); RDW Standard Deviation 57.5 fL (35.1-46.3)
--- NOTE | 2024-04-08 14:41 | NUR ---
NOTE PT ABD FIRM, PT REPORTS NO ABD PAIN. HBG WAS 6.6. REPORTED LAB TO DR. OROZCO, DR. OROZCO ORDERED MORE LABS ON PT, REPORTED NO NEED TO GIVE BLOOD NOW. DR. OROZCO STATED IT WAS OK TO HOLD ELIQUIS. NEW LABS SHOW HBG IS 7.
--- NOTE | 2024-04-08 15:08 | NUR ---
NOTE CALLED DR. OROZCO DUE TO PT REPORTING CRAMPING IN HANDS AND R CALF. NO NEW ORDERS AT THIS TIME. REPORTED PT HBG IS NOW 7.0, DR. OROZCO REPORTED TO D/C KELSEY FOR NOW UNTIL HBG IS STABLE.
[2024-04-08 15:31] VITALS: BP 105/61
[2024-04-08] MEDS ORDERED: NS 250 ML IV PRN (17:15)
--- NOTE | 2024-04-08 17:24 | NUR ---
NOTE PT REPORTS HAVING A BOWEL MOVEMENT, PT REPORTS LOOKS BROWN AND LIKE HIS USUAL BM'S. EDUCATED PT NEXT TIME HAVE BM, LET NURSE KNOW TO VISUALIZE.
--- NOTE | 2024-04-08 17:44 | NUR ---
SHIFT SUMMARY PT A&OX4. PT ADMITTED DUE TO LISA. PT REPORTS NO PAIN. PT REPORTS SWELLING IN BLE AND ABD. KNEE HIGH ANTI-EMBOLIC STOCKING APPLIED TO LOWER EXTREMITIES. PT ON TELE. CIWA IS O, PT HAS NO S/S OF WITHDRAWL, PT REPORTS LAST DRINK WAS WEDNESDAY NIGHT. PT INDEPENDENT IN ROOM. IV IRON INFUSING. PT ON ROOM AIR. PT HAD BM TODAY. PT EATS ADEQUATE. BED IN LOWEST POSITION. PT CALLS APPROPRIATE, CALL LIGHT IN REACH. VSS.
[2024-04-08] MEDS ORDERED: Sod Ferric Gluc Complx/Sucrose 125 MG in NS 100 ML IV SCH (18:00)
[2024-04-08 19:23] VITALS: BP 124/57
[2024-04-09 02:02] LABS: Protein, Urine Quantitative 12.1 mg/dL (0.0-11.9)
[2024-04-09 03:03] VITALS: BP 109/67
--- NOTE | 2024-04-09 05:00 | NUR ---
Pt A&O x4, VS WNL, tele NSR with BBB in 70's. CWA negative this shift. independent with mobility, UOP WNL, 24hr urine completed and proteine levels elevated. denies pain. BM x1 on 04/08. PO intake adequate. Edema now mid calf to waist, and only 2+, remains on diuretics.
[2024-04-09 07:14] LABS: Albumin, Blood 2.8 g/dL (3.4-5.0); Anion Gap 11 mmol/L (3-11); Blood Urea Nitrogen 68 mg/dL (8-24); CO2, Blood 22 mmol/L (21-32); Calcium, Blood 8.8 mg/dL (8.5-10.1); Chloride, Blood 112 mmol/L (98-108); Glomerular Filtration Rate 46 (60-); Glucose, Blood 102 mg/dL (70-99); Magnesium, Blood 1.6 mg/dL (1.6-2.4); Phosphorus, Blood 3.9 mg/dL (2.5-4.9); Potassium, Blood 4.2 mmol/L (3.5-5.5); Sodium, Blood 141 mmol/L (136-145)
[2024-04-09 07:35] VITALS: BP 113/68
[2024-04-09] MEDS ORDERED: Bumetanide 1 MG Tab PO SCH (09:00)
--- NOTE | 2024-04-09 09:04 | NUR ---
NOTE DR. LUCAS ROUNDED, CLEARED PT. REPORTED PT CAN SEE [facility] ON WEDNESDAY AT 2PM. DR. LUCAS GAVE VERBAL ORDER TO D/C IV BUMEX AND GIVE 2MG DAILY BUMEX PO.
--- NOTE | 2024-04-09 13:41 | NUR ---
NOTE ASSESSED SYMPTOMS OF ALCOHOL WITHDRAWL. CIWA SCORE WAS A 0. NO S/S OF WITHDRAWL AT THIS TIME. WILL CONT. TO MONITOR.
[2024-04-09 14:13] LABS: BASOPHILS ABSOLUTE AUTO 0.02 K/mm3 (0.00-0.23); BASOPHILS PERCENT AUTO 1 % (0-2); EOSINOPHILS ABSOLUTE AUTO 0.07 K/mm3 (0.00-0.68); EOSINOPHILS PERCENT AUTO 2 % (0-6); Hematocrit 23.3 % (37.0-53.0); Hemoglobin 7.2 g/dL (13.5-17.5); IMMATURE GRAN ABSOLUTE AUTO 0.01 K/mm3 (0.00-0.10); IMMATURE GRAN PERCENT AUTO 0 % (0-1); LYMPHOCYTES ABSOLUTE AUTO 0.59 K/mm3 (0.84-5.20); LYMPHOCYTES PERCENT AUTO 17 % (21-46); MONOCYTES ABSOLUTE AUTO 0.61 K/mm3 (0.16-1.47); MONOCYTES PERCENT AUTO 17 % (4-13); Mean Corpuscular HGB Conc 30.9 g/dL (31.5-36.5); Mean Corpuscular Volume 94 fL (80-100); Mean Platelet Volume 9.6 fL (9.1-12.4); NEUTROPHILS ABSOLUTE AUTO 2.28 K/mm3 (1.96-9.15); NEUTROPHILS PERCENT AUTO 64 % (41-73); Platelet Count 125 K/mm3 (150-400); RDW Coefficient Variation 16.6 % (11.7-14.2); RDW Standard Deviation 56.5 fL (35.1-46.3); Red Blood Cell Count 2.48 M/mm3 (4.30-5.90); White Blood Cell Count 3.58 K/mm3 (4.00-11.30)
[2024-04-09] MEDS ORDERED: CLOP75 PO (16:15)
[2024-04-09] MEDS ORDERED: PANT40 PO (16:18)
[2024-04-09 16:40] VITALS: BP 106/63
[2024-04-09 16:41] VITALS: BP 107/66
--- NOTE | 2024-04-09 16:53 | NUR ---
NOTE [facility] IS PT PREFERED [facility]. [facility] IS CLOSED. PT REFUSED TO GO TO ANOTHER PHARMACY, PT HAS SOTALOL AND PROTONIX BID. DR. OROZCO NOTIFIED. DR. OROZCO OK WITH PT RECEIVING BOTH DOSES BEFORE HE LEFT. PT VITAL SIGNS OK TO GIVE.
[2024-04-09] MEDS ORDERED: BUME2 PO (17:16)
--- NOTE | 2024-04-09 17:34 | NUR ---
DISCHARGE NOTE PT A&OX4. PT ADMITTED FOR LISA. REPEAT LABS SHOWED HBG WAS 7.2. DR. OROZCO CLEARED PT FOR DISCHARGE. PT AMBULATORY IN ROOM. PT EATS ADEQUATE. VSS. IV D/C, TELE D/C. NICOTINE PATCH REMOVED. PT REPORTS NO CHEST DISCOMFORT OR SOB. PT NO SYMPTOMS OF ALCOHOL WITHDRAWL PRESENT. EDUCATED PT ON DISCHARGE INSTRUCTIONS AND MEDS. MEDS FAXED TO [facility] PT REPORTED "WILL FOLLOW UP WITH DR. LUCAS AND PCP AND GET LABS COMPLETE, AND TAKE MEDS PRESCRIBED TOMORROW." PT TOOK ALL PERSONAL BELONGINGS. PT ESCORTED BY RADIO INTELLIGENCE OPERATOR VIA WHEELCHAIR.
== END 2024-04-09 17:28 | disposition home or self-care (01) | DRG 683 ==
LOC: ER 09:03 → ERHOLD 13:34 → MEDS 13:34
PROVIDERS: Internal Medicine Nephrology; Student in an Organized Health Care Education/Training Program; ADMIT Family Medicine
PROC: 30233N1 Transfusion of Nonautologous Red Blood Cells into Peripheral Vein, Percutaneous Approach (ICD-10-PCS; principal; 2024-04-07)
DX: N17.9 Acute kidney failure, unspecified (principal); E87.1 Hypo-osmolality and hyponatremia; I13.0 Hypertensive heart and chronic kidney disease with heart failure and stage 1 through stage 4 chronic kidney disease, or unspecified chronic kidney disease; I50.32 Chronic diastolic (congestive) heart failure; E78.5 Hyperlipidemia, unspecified; I48.91 Unspecified atrial fibrillation; I25.10 Atherosclerotic heart disease of native coronary artery without angina pectoris; I35.0 Nonrheumatic aortic (valve) stenosis; N18.9 Chronic kidney disease, unspecified; K70.9 Alcoholic liver disease, unspecified; F10.10 Alcohol abuse, uncomplicated; E88.09 Other disorders of plasma-protein metabolism, not elsewhere classified; D63.1 Anemia in chronic kidney disease; F17.290 Nicotine dependence, other tobacco product, uncomplicated; L40.9 Psoriasis, unspecified; R73.03 Prediabetes; Z95.5 Presence of coronary angioplasty implant and graft; Z91.09 Other allergy status, other than to drugs and biological substances; Z88.8 Allergy status to other drugs, medicaments and biological substances; Z79.01 Long term (current) use of anticoagulants; Z79.899 Other long term (current) drug therapy
CPT/HCPCS: 36415; 36430; 71046; 76770; 80053; 80069; 82272; 82550; 82607; 82746; 83540; 83550; 83735; 83880; 84100; 84156; 85018; 85025; 85610; 85730; 86850; 86900; 86901; 86923; 93005; 93010; 93308; 93321; 99285-25; A9270; J2916; J7030; J7050; P9016

== ENCOUNTER 2024-05-02 12:40 | Emergency (ER) | payer BC ==
[~2024-05-02] VITALS: Ht 185.4 cm; Wt 117.9 kg
[~2024-05-02 12:40] MED LIST changes: +ATOR40TA PO; +BUME2 PO; +Betapace120 MG PO; +PANT40 PO; +TORSE20 PO
[2024-05-02 13:08] LABS: BASOPHILS ABSOLUTE AUTO 0.03 K/mm3 (0.00-0.23); BASOPHILS PERCENT AUTO 1 % (0-2); EOSINOPHILS ABSOLUTE AUTO 0.08 K/mm3 (0.00-0.68); EOSINOPHILS PERCENT AUTO 1 % (0-6); Hematocrit 22.5 % (37.0-53.0); Hemoglobin 6.8 g/dL (13.5-17.5); IMMATURE GRAN ABSOLUTE AUTO 0.01 K/mm3 (0.00-0.10); IMMATURE GRAN PERCENT AUTO 0 % (0-1); LYMPHOCYTES ABSOLUTE AUTO 0.76 K/mm3 (0.84-5.20); LYMPHOCYTES PERCENT AUTO 14 % (21-46); MONOCYTES ABSOLUTE AUTO 0.76 K/mm3 (0.16-1.47); MONOCYTES PERCENT AUTO 14 % (4-13); Mean Corpuscular HGB 26.8 pg (26.0-34.0); Mean Corpuscular HGB Conc 30.2 g/dL (31.5-36.5); Mean Corpuscular Volume 89 fL (80-100); Mean Platelet Volume 9.7 fL (9.1-12.4); NEUTROPHILS ABSOLUTE AUTO 4.01 K/mm3 (1.96-9.15); NEUTROPHILS PERCENT AUTO 71 % (41-73); Platelet Count 131 K/mm3 (150-400); RDW Coefficient Variation 16.3 % (11.7-14.2); RDW Standard Deviation 53.2 fL (35.1-46.3); Red Blood Cell Count 2.54 M/mm3 (4.30-5.90); White Blood Cell Count 5.65 K/mm3 (4.00-11.30)
[2024-05-02 13:30] LABS: Albumin, Blood 3.1 g/dL (3.4-5.0); Albumin/Globulin Ratio 0.7 (0.8-1.8); Bilirubin, Total 1.3 mg/dL (0.1-1.0); Bun/Creatinine Ratio 30.2 (12.0-20.0); Calcium, Blood 9.4 mg/dL (8.5-10.1); Creatinine, Blood 1.39 mg/dL (0.60-1.20); Globulin, Blood 4.4 g/dL (2.2-4.0); Potassium, Blood 3.8 mmol/L (3.5-5.5); Total Protein, Blood 7.5 g/dL (6.4-8.2)
[2024-05-02 15:30] VITALS: BP 121/70
[2024-05-02] MEDS ORDERED: Furosemide 10 MG/ML 10ML Vial IV ONE (15:35)
== END 2024-05-02 16:00 | disposition home or self-care (01) ==
LOC: ER 12:40
PROVIDERS: Physician Assistant
DX: R60.0 Localized edema (principal); I11.0 Hypertensive heart disease with heart failure; I50.30 Unspecified diastolic (congestive) heart failure; F17.220 Nicotine dependence, chewing tobacco, uncomplicated; Z88.8 Allergy status to other drugs, medicaments and biological substances; Z91.048 Other nonmedicinal substance allergy status; Z79.01 Long term (current) use of anticoagulants; Z79.899 Other long term (current) drug therapy
CPT/HCPCS: 71046; 80053; 82140; 83690; 83880; 84484; 85025; 93005; 93010; 96374; 99284-25; J1940

== ENCOUNTER 2024-05-20 12:47 | Inpatient (IN) | payer BC ==
[~2024-05-20] VITALS: Ht 185.4 cm; Wt 124.1 kg
[~2024-05-20 12:47] MED LIST changes: -Betapace120 MG PO; +SOTO80 PO
[2024-05-20 13:19] LABS: BASOPHILS ABSOLUTE AUTO 0.02 K/mm3 (0.00-0.23); BASOPHILS PERCENT AUTO 0 % (0-2); EOSINOPHILS ABSOLUTE AUTO 0.05 K/mm3 (0.00-0.68); EOSINOPHILS PERCENT AUTO 1 % (0-6); Hematocrit 21.6 % (37.0-53.0); Hemoglobin 6.6 g/dL (13.5-17.5); IMMATURE GRAN ABSOLUTE AUTO 0.02 K/mm3 (0.00-0.10); IMMATURE GRAN PERCENT AUTO 0 % (0-1); LYMPHOCYTES ABSOLUTE AUTO 0.28 K/mm3 (0.84-5.20); LYMPHOCYTES PERCENT AUTO 5 % (21-46); MONOCYTES ABSOLUTE AUTO 0.26 K/mm3 (0.16-1.47); MONOCYTES PERCENT AUTO 5 % (4-13); Mean Corpuscular HGB 24.4 pg (26.0-34.0); Mean Corpuscular HGB Conc 30.6 g/dL (31.5-36.5); Mean Corpuscular Volume 80 fL (80-100); Mean Platelet Volume 9.9 fL (9.1-12.4); NEUTROPHILS ABSOLUTE AUTO 5.03 K/mm3 (1.96-9.15); NEUTROPHILS PERCENT AUTO 89 % (41-73); Platelet Count 132 K/mm3 (150-400); RDW Coefficient Variation 17.2 % (11.7-14.2); RDW Standard Deviation 49.9 fL (35.1-46.3); White Blood Cell Count 5.66 K/mm3 (4.00-11.30)
[2024-05-20 13:33] LABS: Albumin/Globulin Ratio 0.7 (0.8-1.8); Bilirubin, Total 1.6 mg/dL (0.1-1.0); Bun/Creatinine Ratio 26.4 (12.0-20.0); Calcium, Blood 8.5 mg/dL (8.5-10.1); Creatinine, Blood 2.5 mg/dL (0.60-1.20); Globulin, Blood 4.3 g/dL (2.2-4.0); Potassium, Blood 2.5 mmol/L (3.5-5.5); Total Protein, Blood 7.3 g/dL (6.4-8.2)
[2024-05-20] MEDS ORDERED: Acetaminophen 325 MG TABLET PO ONE (13:35)
[2024-05-20] MEDS ORDERED: Potassium Chloride 20 MEQ TabCR PO ONE (13:55)
[2024-05-20] MEDS ORDERED: Potassium Acetate 20 MEQ in NS 100 ML IV ONE (13:55)
[2024-05-20] MEDS ORDERED: Potassium Chloride 20 MEQ in NS 90 ML IV ONE ×2 (14:05→21:00)
[2024-05-20 14:11] LABS: Influenza A, PCR NEGATIVE (NEGATIVE); Influenza B, PCR NEGATIVE (NEGATIVE); Resp Syncytial Virus, PCR NEGATIVE (NEGATIVE); SARS-Cov-2 (COVID-19) PCR, MMC NEGATIVE (NEGATIVE)
[2024-05-20] MEDS ORDERED: NS 1,000 ML IV SCH (14:20)
[2024-05-20 14:31] LABS: Source, Urine Clean Catch
[2024-05-20 14:35] LABS: Appearance, Urine Clear (Clear); Bilirubin, Urine Neg (Neg); Blood, Urine Neg (Neg); Color, Urine Yellow (P-Yellow); Glucose Qualitative, Urine Neg (Neg); Ketones, Urine Neg (Neg); Leukocyte Esterase, Urine 2+ (Neg); Nitrite, Urine Neg (Neg); Protein, Urine 2+ (Neg); Specific Gravity, Urine 1.015 (1.003-1.022); Urobilinogen, Urine NORM (Normal)
[2024-05-20 14:47] LABS: Bacteria Mod /hpf; Red Blood Cells, Urine 0-2 /hpf (0-2); Squamous Epithelial Cells Few /hpf (Few)
[2024-05-20] MEDS ORDERED: ChlordiazePOXIDE 25 MG Cap PO PRN (15:45)
[2024-05-20] MEDS ORDERED: FLU VACC TS2024-25(6MOS UP)/PF 45 MCG/0.5 ML SYRINGE IM SCH (15:45)
[2024-05-20] MEDS ORDERED: LORazepam 2 MG/ML 1ML Injection IV PRN (15:50)
[2024-05-20] MEDS ORDERED: Folic Acid 1 MG in NS 50 ML IV SCH (16:00)
[2024-05-20] MEDS ORDERED: Thiamine HCl 100 MG in NS 50 ML IV SCH (16:00)
[2024-05-20 16:08] LABS: Percent Saturation 5.7 % (20.0-50.0)
[2024-05-20] MEDS ORDERED: Pantoprazole Sodium 40 MG Injection IV SCH (16:30)
[2024-05-20] MEDS ORDERED: CefTRIAXone Sodium 1,000 MG in NS 100 ML IV SCH (18:00)
[2024-05-20 18:08] VITALS: BP 106/66
[2024-05-20] MEDS ORDERED: METO5 PO (18:22)
[2024-05-20] MEDS ORDERED: THERA-D2000 UNIT PO (18:23)
--- NOTE | 2024-05-20 18:43 | NUR ---
PATIENT TO FLOOR 1802. A/O X4. CALLED DR GALAN FOR BLOOD PRODUCT ORDERS, STATED HE HAD ER PLACE THEM ALREADY, INFORMED HIM THERE WAS NO ORDER CURRENTLY. ORDER WAS PLACED. STARTED IV ABX. ON 2 LITERS NASAL CANNULA, BASELINE ROOM AIR.
[2024-05-20] MEDS ORDERED: NS 500 ML IV SCH (18:45)
[2024-05-20 18:56] LABS: Albumin, Blood 2.7 g/dL (3.4-5.0); Anion Gap 14 mmol/L (3-11); Blood Urea Nitrogen 65 mg/dL (8-24); Bun/Creatinine Ratio 24.3 (12.0-20.0); CO2, Blood 34 mmol/L (21-32); Calcium, Blood 8.5 mg/dL (8.5-10.1); Chloride, Blood 86 mmol/L (98-108); Creatinine, Blood 2.67 mg/dL (0.60-1.20); Glomerular Filtration Rate 27 (60-); Glucose, Blood 145 mg/dL (70-99); Magnesium, Blood 2.5 mg/dL (1.6-2.4); Phosphorus, Blood 4.4 mg/dL (2.5-4.9); Potassium, Blood 2.8 mmol/L (3.5-5.5); Sodium, Blood 131 mmol/L (136-145)
[2024-05-20] MEDS ORDERED: Potassium Chloride 10 Meq Tablet SA PO ONE (20:55)
[2024-05-20] MEDS ORDERED: Metoprolol Succinate 50 MG TABCR PO SCH (21:00)
[2024-05-20] MEDS ORDERED: Sotalol HCl 80 MG Tab PO SCH (21:00)
[2024-05-20] MEDS ORDERED: Darbepoetin Alfa In Albumn Sol 60 MCG/0.3 ML Syringe SC SCH (21:00)
[2024-05-20 21:12] VITALS: BP 102/58
[2024-05-20 21:38] VITALS: BP 113/63
[2024-05-20] MEDS ORDERED: Benzonatate 100 MG Cap PO PRN (22:00)
[2024-05-20 22:38] VITALS: BP 106/65
[2024-05-20] MEDS ORDERED: Guaifenesin/Dextromethorphan Syrup 5 ML UDC PO PRN (23:10)
[2024-05-20 23:25] VITALS: BP 103/68
[2024-05-21] VITALS (9 sets, daily range): BP systolic 98–113; BP diastolic 56–70
[2024-05-21] MEDS ORDERED: Sod Ferric Gluc Complx/Sucrose 125 MG in NS 100 ML IV SCH (00:09)
[2024-05-21 05:57] LABS: Hematocrit 22.5 % (37.0-53.0); Hemoglobin 6.9 g/dL (13.5-17.5)
[2024-05-21 06:18] LABS: Albumin, Blood 2.8 g/dL (3.4-5.0); Albumin/Globulin Ratio 0.7 (0.8-1.8); Bilirubin, Direct 0.8 mg/dL (0.0-0.3); Bilirubin, Indirect 1.4 mg/dL (0.1-0.7); Bilirubin, Total 2.2 mg/dL (0.1-1.0); Bun/Creatinine Ratio 22.4 (12.0-20.0); Calcium, Blood 8.1 mg/dL (8.5-10.1); Creatinine, Blood 3.12 mg/dL (0.60-1.20); Magnesium, Blood 2.4 mg/dL (1.6-2.4); Phosphorus, Blood 4.5 mg/dL (2.5-4.9); Potassium, Blood 2.9 mmol/L (3.5-5.5); Thyroid Stimulating Hormone 1.32 uIU/mL (0.360-4.800); Total Protein, Blood 6.8 g/dL (6.4-8.2); Uric Acid, Blood 14.7 mg/dL (3.5-7.2)
[2024-05-21] MEDS ORDERED: Potassium Chl 10MEQ/Water100ML 100 ML IV SCH (08:00)
[2024-05-21] MEDS ORDERED: Spironolactone 25 MG Tab PO SCH ×2 (09:00)
[2024-05-21] MEDS ORDERED: Clopidogrel Bisulfate 75 MG Tab PO SCH (09:00)
[2024-05-21] MEDS ORDERED: Heparin Sodium 5000 Units/ML 1ML MDV SC SCH (09:00)
[2024-05-21] MEDS ORDERED: Atorvastatin 10 MG Tab PO SCH (09:00)
[2024-05-21 11:13] LABS: Stool Occult Blood Guaiac 1 Pos (Neg)
--- NOTE | 2024-05-21 12:31 | NUR ---
SPOKE WITH DR GANN WHO WAS OKAY WITH HOLDING SOTALOL TODAY AND GIVING METOPROLOL. BUT GIVE SOTALOL TOMORROW AND DC METOPROLOL FOR FUTURE.
[2024-05-21 12:49] LABS: Albumin, Blood 2.9 g/dL (3.4-5.0); Anion Gap 13 mmol/L (3-11); Blood Urea Nitrogen 72 mg/dL (8-24); Bun/Creatinine Ratio 22.1 (12.0-20.0); CO2, Blood 31 mmol/L (21-32); Chloride, Blood 88 mmol/L (98-108); Creatinine, Blood 3.26 mg/dL (0.60-1.20); Glomerular Filtration Rate 21 (60-); Glucose, Blood 128 mg/dL (70-99); Magnesium, Blood 2.6 mg/dL (1.6-2.4); Potassium, Blood 3.3 mmol/L (3.5-5.5); Sodium, Blood 129 mmol/L (136-145)
[2024-05-21] MEDS ORDERED: Potassium Chl 20MEQ/Water100ML 100 ML IV ONE (13:05)
[2024-05-21] MEDS ORDERED: Albumin (Human) 12.5gm/250ml 250 ML IV ONE (13:05)
[2024-05-21] MEDS ORDERED: Potassium Chloride 10 Meq Tablet SA PO ONE (13:05)
[2024-05-21] MEDS ORDERED: Bumetanide 0.25 MG/ML 10ML Vial IV ONE (13:05)
[2024-05-21] MEDS ORDERED: Albumin Human 50 ML IV ONE (13:10)
[2024-05-21] MEDS ORDERED: Nicotine 21 MG PATCH TOP ONE (15:00)
--- NOTE | 2024-05-21 18:54 | NUR ---
SHIFT SUMMARY RECEIVED 1 UNIT PRBC WITHOUT COMPLICATIONS. VSS. REQUIRED MEDICATION X2 PER CIWA SCORING. ABLE TO SIT IN CHAIR LATER IN SHIFT. CONTINUES TO REQUIRE 2 LITERS NC. VITAMINS AND ELECTROLYTES REPLACED VIA IV. 24 HOUR URINE STARTED. TELE CALLED SEVERAL TIMES FOR MISALIGNED PATCHES.
[2024-05-22 03:46] VITALS: BP 105/62
[2024-05-22 07:48] VITALS: BP 141/84
[2024-05-22 07:55] LABS: BASOPHILS ABSOLUTE AUTO 0.03 K/mm3 (0.00-0.23); BASOPHILS PERCENT AUTO 1 % (0-2); EOSINOPHILS ABSOLUTE AUTO 0.09 K/mm3 (0.00-0.68); EOSINOPHILS PERCENT AUTO 1 % (0-6); IMMATURE GRAN ABSOLUTE AUTO 0.03 K/mm3 (0.00-0.10); IMMATURE GRAN PERCENT AUTO 1 % (0-1); LYMPHOCYTES ABSOLUTE AUTO 0.65 K/mm3 (0.84-5.20); LYMPHOCYTES PERCENT AUTO 10 % (21-46); MONOCYTES ABSOLUTE AUTO 0.74 K/mm3 (0.16-1.47); MONOCYTES PERCENT AUTO 12 % (4-13); Mean Corpuscular HGB 25.2 pg (26.0-34.0); Mean Corpuscular HGB Conc 30.8 g/dL (31.5-36.5); Mean Corpuscular Volume 82 fL (80-100); Mean Platelet Volume 10.1 fL (9.1-12.4); NEUTROPHILS ABSOLUTE AUTO 4.73 K/mm3 (1.96-9.15); NEUTROPHILS PERCENT AUTO 75 % (41-73); Platelet Count 107 K/mm3 (150-400); RDW Coefficient Variation 16.7 % (11.7-14.2); Red Blood Cell Count 3.17 M/mm3 (4.30-5.90); White Blood Cell Count 6.27 K/mm3 (4.00-11.30)
[2024-05-22 08:18] LABS: Albumin, Blood 3.1 g/dL (3.4-5.0); Albumin/Globulin Ratio 0.8 (0.8-1.8); Bilirubin, Indirect 0.9 mg/dL (0.1-0.7); Bilirubin, Total 1.9 mg/dL (0.1-1.0); Bun/Creatinine Ratio 20.9 (12.0-20.0); Calcium, Blood 8.7 mg/dL (8.5-10.1); Creatinine, Blood 3.74 mg/dL (0.60-1.20); Globulin, Blood 4.1 g/dL (2.2-4.0); Potassium, Blood 3.6 mmol/L (3.5-5.5); Total Protein, Blood 7.2 g/dL (6.4-8.2)
[2024-05-22] MEDS ORDERED: Spironolactone 25 MG Tab PO SCH (09:00)
[2024-05-22] MEDS ORDERED: Potassium Chloride 20 MEQ TabCR PO SCH ×3 (09:00→12:00)
[2024-05-22] MEDS ORDERED: Nicotine 21 MG PATCH TOP SCH (09:00)
[2024-05-22] MEDS ORDERED: Bumetanide 0.25 MG/ML 4ML ViaL IV SCH (09:00)
[2024-05-22 16:22] VITALS: BP 84/47
--- NOTE | 2024-05-22 18:20 | NUR ---
PT AT START OF SHIFT WAS PULLING EVERYTHING OFF OF HIM AND TRYING TO GET OUT OF BED. CHARGE NURSE NOTIFIED AND HAD A SITTER COME IN [place] 1000. CIWA HAS TRENDED DOWN. SEE EMAR FOR ATIVAN FREQUENCY. SINCE 1030 PT HAS BEEN INTERMITTANTLY LETHARGIC WITH NO APPETITE.
[2024-05-22 19:37] VITALS: BP 76/49
[2024-05-22 20:22] VITALS: BP 110/70
[2024-05-22 23:35] VITALS: BP 105/63
[2024-05-23 04:17] VITALS: BP 108/67
[2024-05-23 05:56] LABS: BASOPHILS ABSOLUTE AUTO 0.02 K/mm3 (0.00-0.23); BASOPHILS PERCENT AUTO 0 % (0-2); EOSINOPHILS ABSOLUTE AUTO 0.12 K/mm3 (0.00-0.68); EOSINOPHILS PERCENT AUTO 2 % (0-6); Hematocrit 25.8 % (37.0-53.0); Hemoglobin 7.9 g/dL (13.5-17.5); IMMATURE GRAN ABSOLUTE AUTO 0.04 K/mm3 (0.00-0.10); IMMATURE GRAN PERCENT AUTO 1 % (0-1); LYMPHOCYTES ABSOLUTE AUTO 0.83 K/mm3 (0.84-5.20); LYMPHOCYTES PERCENT AUTO 12 % (21-46); MONOCYTES ABSOLUTE AUTO 0.71 K/mm3 (0.16-1.47); MONOCYTES PERCENT AUTO 10 % (4-13); Mean Corpuscular HGB 25.1 pg (26.0-34.0); Mean Corpuscular HGB Conc 30.6 g/dL (31.5-36.5); Mean Corpuscular Volume 82 fL (80-100); Mean Platelet Volume 9.9 fL (9.1-12.4); NEUTROPHILS PERCENT AUTO 76 % (41-73); Platelet Count 111 K/mm3 (150-400); RDW Coefficient Variation 17.1 % (11.7-14.2); RDW Standard Deviation 50.2 fL (35.1-46.3); Red Blood Cell Count 3.15 M/mm3 (4.30-5.90); White Blood Cell Count 7.12 K/mm3 (4.00-11.30)
[2024-05-23 06:42] LABS: Albumin, Blood 2.9 g/dL (3.4-5.0); Anion Gap 10 mmol/L (3-11); Blood Urea Nitrogen 80 mg/dL (8-24); Bun/Creatinine Ratio 24.4 (12.0-20.0); CO2, Blood 32 mmol/L (21-32); Calcium, Blood 8.9 mg/dL (8.5-10.1); Chloride, Blood 90 mmol/L (98-108); Creatinine, Blood 3.28 mg/dL (0.60-1.20); Glomerular Filtration Rate 21 (60-); Glucose, Blood 89 mg/dL (70-99); Magnesium, Blood 2.6 mg/dL (1.6-2.4); Phosphorus, Blood 5.1 mg/dL (2.5-4.9); Potassium, Blood 2.9 mmol/L (3.5-5.5); Sodium, Blood 129 mmol/L (136-145)
[2024-05-23] MEDS ORDERED: Potassium Chloride 20 MEQ TabCR PO ONE (07:15)
[2024-05-23] MEDS ORDERED: Potassium Chloride 20 MEQ in NS 90 ML IV ONE (07:30)
[2024-05-23 07:36] VITALS: BP 100/53
[2024-05-23 15:47] VITALS: BP 93/57
--- NOTE | 2024-05-23 18:07 | NUR ---
PT WAS AWAKE AND ALERT TODAY AND SCORED 1 ON CIWA. PT HAD NO C//O PAIN, SOB OR CHEST PAIN
[2024-05-23 20:10] VITALS: BP 105/61
[2024-05-24 01:32] VITALS: BP 104/60
--- NOTE | 2024-05-24 04:36 | NUR ---
BEGINING OF SHIFT PT EASILY AWAKENED, AAOX3. AROUND 0300 PT AA0X4, WATCHING TV AND TALKING ABOUT LOOSING DAYS IN THE HOSPITAL. ADMITTED TO DRINKING "TOO MUCH." CIWA'S HAVE BEEN 1, FOR DATE ONLY. TELE IN PLACE, SR @76 WITH BBB. 2L O2 VIA NC. 24 HOUR COLLECTION IN PROGRESS. 0400: OATMEAL GIVEN, TOLERATED WELL. NO ACUTE EVENTS OVERNIGHT.
[2024-05-24 05:09] VITALS: BP 107/69
[2024-05-24 05:40] LABS: BASOPHILS ABSOLUTE AUTO 0.02 K/mm3 (0.00-0.23); BASOPHILS PERCENT AUTO 0 % (0-2); EOSINOPHILS ABSOLUTE AUTO 0.11 K/mm3 (0.00-0.68); EOSINOPHILS PERCENT AUTO 2 % (0-6); Hematocrit 25.3 % (37.0-53.0); Hemoglobin 7.9 g/dL (13.5-17.5); IMMATURE GRAN ABSOLUTE AUTO 0.04 K/mm3 (0.00-0.10); IMMATURE GRAN PERCENT AUTO 1 % (0-1); LYMPHOCYTES ABSOLUTE AUTO 0.95 K/mm3 (0.84-5.20); LYMPHOCYTES PERCENT AUTO 18 % (21-46); MONOCYTES ABSOLUTE AUTO 0.65 K/mm3 (0.16-1.47); MONOCYTES PERCENT AUTO 12 % (4-13); Mean Corpuscular HGB 26.1 pg (26.0-34.0); Mean Corpuscular HGB Conc 31.2 g/dL (31.5-36.5); Mean Corpuscular Volume 84 fL (80-100); Mean Platelet Volume 9.5 fL (9.1-12.4); NEUTROPHILS ABSOLUTE AUTO 3.63 K/mm3 (1.96-9.15); NEUTROPHILS PERCENT AUTO 67 % (41-73); Platelet Count 111 K/mm3 (150-400); RDW Coefficient Variation 17.5 % (11.7-14.2); RDW Standard Deviation 51.8 fL (35.1-46.3); Red Blood Cell Count 3.03 M/mm3 (4.30-5.90)
[2024-05-24 06:27] LABS: Albumin, Blood 2.8 g/dL (3.4-5.0); Anion Gap 8 mmol/L (3-11); Blood Urea Nitrogen 72 mg/dL (8-24); Bun/Creatinine Ratio 30.5 (12.0-20.0); CO2, Blood 34 mmol/L (21-32); Calcium, Blood 8.9 mg/dL (8.5-10.1); Chloride, Blood 92 mmol/L (98-108); Creatinine, Blood 2.36 mg/dL (0.60-1.20); Glomerular Filtration Rate 31 (60-); Glucose, Blood 153 mg/dL (70-99); Magnesium, Blood 2.6 mg/dL (1.6-2.4); Phosphorus, Blood 3.7 mg/dL (2.5-4.9); Potassium, Blood 2.9 mmol/L (3.5-5.5); Sodium, Blood 131 mmol/L (136-145)
[2024-05-24] MEDS ORDERED: Potassium Chloride 20 MEQ TabCR PO ONE (07:00)
[2024-05-24 07:13] VITALS: BP 106/64
[2024-05-24] MEDS ORDERED: Spironolactone 50 MG Tab PO SCH (09:00)
[2024-05-24 09:03] LABS: Protein, Urine Quantitative 11.4 mg/dL (0.0-11.9)
[2024-05-24] MEDS ORDERED: Potassium Chloride 20 MEQ TabCR PO SCH (12:00)
[2024-05-24 13:47] LABS: ALDOSTERONE 34.4 ng/dL; ALDOSTERONE/RENINACTIVITY CALC 1.2 ratio (<=25.0); RENIN ACTIVITY 29.8 ng/mL/hr
--- NOTE | 2024-05-24 16:25 | NUR ---
NO CHANGES IN PT STATUS. PT HAS NO C/O SOB, CHEST PAIN OR SOB
[2024-05-24 17:07] LABS: ANTINUCLEAR AB (ANA),HEP-2,IGG <1:80 (<1:80)
[2024-05-24 18:43] LABS: GBM, IGG MULTIPLEX BEAD ASSAY 0 AU/mL (0-19); MYELOPEROXIDASE (MPO) AB,IGG 0 AU/mL (0-19); SERINE PROTEINASE 3 PR3 AB,IGG 1 AU/mL (0-19)
[2024-05-24 22:02] VITALS: BP 116/71
[2024-05-25 00:46] VITALS: BP 104/67
[2024-05-25 04:13] VITALS: BP 111/69
--- NOTE | 2024-05-25 04:26 | NUR ---
PT A&OX4, VS WNL, PO INTAKE WNL. UOP IS WNL, IS INCONTINENT, PURWIK IN USE. TELE NSR WITH BBB IN 80'S. O2 2L/ NC. UP WITH ASSIST TO CHAIR THIS SHIFT. CIWA NEGATIVE. DENIES PAIN, AWAITING GI CONSULT, AND WILL D/C HOME POSSIBLE. DOES NOT CALL APPROPRIATELY, BED ALARM IN USE.
[2024-05-25 05:18] LABS: BASOPHILS ABSOLUTE AUTO 0.02 K/mm3 (0.00-0.23); BASOPHILS PERCENT AUTO 0 % (0-2); EOSINOPHILS ABSOLUTE AUTO 0.13 K/mm3 (0.00-0.68); EOSINOPHILS PERCENT AUTO 3 % (0-6); Hematocrit 25.8 % (37.0-53.0); Hemoglobin 8.1 g/dL (13.5-17.5); IMMATURE GRAN ABSOLUTE AUTO 0.01 K/mm3 (0.00-0.10); IMMATURE GRAN PERCENT AUTO 0 % (0-1); LYMPHOCYTES ABSOLUTE AUTO 1.04 K/mm3 (0.84-5.20); LYMPHOCYTES PERCENT AUTO 22 % (21-46); MONOCYTES ABSOLUTE AUTO 0.66 K/mm3 (0.16-1.47); MONOCYTES PERCENT AUTO 14 % (4-13); Mean Corpuscular HGB 26.5 pg (26.0-34.0); Mean Corpuscular HGB Conc 31.4 g/dL (31.5-36.5); Mean Corpuscular Volume 84 fL (80-100); Mean Platelet Volume 9.5 fL (9.1-12.4); NEUTROPHILS ABSOLUTE AUTO 2.92 K/mm3 (1.96-9.15); NEUTROPHILS PERCENT AUTO 61 % (41-73); Platelet Count 107 K/mm3 (150-400); RDW Coefficient Variation 19.2 % (11.7-14.2); RDW Standard Deviation 52.7 fL (35.1-46.3); Red Blood Cell Count 3.06 M/mm3 (4.30-5.90); White Blood Cell Count 4.78 K/mm3 (4.00-11.30)
[2024-05-25 05:41] LABS: Albumin, Blood 2.7 g/dL (3.4-5.0); Anion Gap 10 mmol/L (3-11); Blood Urea Nitrogen 63 mg/dL (8-24); Bun/Creatinine Ratio 32.1 (12.0-20.0); CO2, Blood 35 mmol/L (21-32); Calcium, Blood 8.9 mg/dL (8.5-10.1); Chloride, Blood 91 mmol/L (98-108); Creatinine, Blood 1.96 mg/dL (0.60-1.20); Glomerular Filtration Rate 38 (60-); Glucose, Blood 105 mg/dL (70-99); Magnesium, Blood 2.2 mg/dL (1.6-2.4); Phosphorus, Blood 3.3 mg/dL (2.5-4.9); Potassium, Blood 3.3 mmol/L (3.5-5.5); Sodium, Blood 133 mmol/L (136-145)
[2024-05-25] MEDS ORDERED: Potassium Chloride 20 MEQ TabCR PO ONE (06:10)
[2024-05-25 07:25] VITALS: BP 107/66
[2024-05-25 11:16] VITALS: BP 106/62
[2024-05-25 12:31] LABS: International Normalized Ratio 1.2; Prothrombin Time Results 12.7 Sec (9.7-11.5)
[2024-05-25 13:17] LABS: Albumin/Globulin Ratio 0.8 (0.8-1.8); Bilirubin, Total 1.5 mg/dL (0.1-1.0); Bun/Creatinine Ratio 33.5 (12.0-20.0); Calcium, Blood 8.7 mg/dL (8.5-10.1); Creatinine, Blood 1.79 mg/dL (0.60-1.20); Potassium, Blood 3.8 mmol/L (3.5-5.5)
[2024-05-25 15:58] VITALS: BP 109/67
--- NOTE | 2024-05-25 19:01 | NUR ---
SHIFT SUMMARY PT A&OX4. PT ADMITTED DUE TO LISA. LAST CIWA WAS 0. NO S/S OF WITHDRAWL. PT REPORTS NO CHEST PAIN/SOB. PT ON 2L VIA N/C. PT STANDS TO USE URINAL. PT REPORTS NO BM IN A WEEK BUT WANTS TO TRY TO HAVE IT ON HIS OWN. GI WAS CONSULTED. PT LIKES ICE CHIPS. PT EATS ADEQUATE. WAS AT BEDSIDE DURING SHIFT. PT ON TELE, TELE REPORTED A PROLONGED QTC .50. PT VSS. SPO2 IS 99%. NO ACUTE CHANGES TODAY. PT IN BED, BED IN LOWEST POSITION, CALL LIGHT IN REACH
[2024-05-25 19:10] VITALS: BP 101/61
--- NOTE | 2024-05-25 19:15 | NUR ---
PT WITH SCALLING AREA ON RIGHT BELL, AREA APPEARS TO HAVE BEEN SCRATCHED, AND HAS SMALL AMT OF BLEEDING. AREA CLEANSED WITH WOUND CLEANSER, OINTMENT PLACED ON BILATERAL LE'S, AND A MEPILEX AND THEN KERLIX PLACED FOR PROTECTION.
[2024-05-25] MEDS ORDERED: Sotalol HCl 80 MG Tab PO SCH (21:00)
[2024-05-26] VITALS (7 sets, daily range): BP systolic 99–133; BP diastolic 57–72
--- NOTE | 2024-05-26 04:39 | NUR ---
PT A&O X4, VS WNL, CONTNUES TO REQUIRE O2 @ 2L/ NC. PT USING URINAL TO VOID, NO INCONTINENCE NOTED. TELE IS NSR IN 70'S. DENIES PAIN. UP WITH ASSIST TO BR, NO BM. PT CONTINUES TO BE ON IVABX, USING CALL SYSTEM APPROPRIATELY.
[2024-05-26 06:32] LABS: BASOPHILS ABSOLUTE AUTO 0.02 K/mm3 (0.00-0.23); BASOPHILS PERCENT AUTO 0 % (0-2); EOSINOPHILS ABSOLUTE AUTO 0.15 K/mm3 (0.00-0.68); EOSINOPHILS PERCENT AUTO 3 % (0-6); Hemoglobin 8.1 g/dL (13.5-17.5); IMMATURE GRAN ABSOLUTE AUTO 0.02 K/mm3 (0.00-0.10); IMMATURE GRAN PERCENT AUTO 0 % (0-1); LYMPHOCYTES ABSOLUTE AUTO 0.87 K/mm3 (0.84-5.20); LYMPHOCYTES PERCENT AUTO 16 % (21-46); MONOCYTES ABSOLUTE AUTO 0.64 K/mm3 (0.16-1.47); MONOCYTES PERCENT AUTO 12 % (4-13); Mean Corpuscular HGB 25.9 pg (26.0-34.0); Mean Corpuscular Volume 86 fL (80-100); Mean Platelet Volume 9.7 fL (9.1-12.4); NEUTROPHILS ABSOLUTE AUTO 3.69 K/mm3 (1.96-9.15); NEUTROPHILS PERCENT AUTO 68 % (41-73); Platelet Count 109 K/mm3 (150-400); RDW Standard Deviation 54.8 fL (35.1-46.3); Red Blood Cell Count 3.13 M/mm3 (4.30-5.90); White Blood Cell Count 5.39 K/mm3 (4.00-11.30)
[2024-05-26 06:59] LABS: Anion Gap 9 mmol/L (3-11); Blood Urea Nitrogen 54 mg/dL (8-24); Bun/Creatinine Ratio 32.5 (12.0-20.0); CO2, Blood 34 mmol/L (21-32); Calcium, Blood 9.3 mg/dL (8.5-10.1); Chloride, Blood 91 mmol/L (98-108); Creatinine, Blood 1.66 mg/dL (0.60-1.20); Glomerular Filtration Rate 47 (60-); Glucose, Blood 102 mg/dL (70-99); Magnesium, Blood 2.1 mg/dL (1.6-2.4); Phosphorus, Blood 2.5 mg/dL (2.5-4.9); Potassium, Blood 3.5 mmol/L (3.5-5.5); Sodium, Blood 130 mmol/L (136-145)
[2024-05-26] MEDS ORDERED: Potassium Chloride 20 MEQ TabCR PO SCH (08:00)
[2024-05-26] MEDS ORDERED: Bumetanide 0.25 MG/ML 4ML ViaL IV SCH (09:00)
[2024-05-26] MEDS ORDERED: Folic Acid 1 MG TAB PO SCH (09:00)
[2024-05-26] MEDS ORDERED: Thiamine HCl 100 MG Tab PO SCH (09:00)
[2024-05-26] MEDS ORDERED: Bisacodyl 10 MG Supp PR PRN (16:15)
--- NOTE | 2024-05-26 17:18 | NUR ---
SHIFT SUMMARY NO ACUTE CHANGES - A/Ox4, INDEPENDENT WITH URINAL, SBA TO BATHROOM c FWW. PT REPORTS FEELING TIRED AND WEAK TODAY, POSSIBLE PT/OT AFTER DIURESISING. CIWA DISCONTINUED ON NOC SHIFT PRIOR, NO EVIDENCE OF ALCOHOL WITHDRAWAL NOTED BY THIS RN. PT DENIES SIGNIFICANT PAIN. 3/10 BACK PAIN RELIEVED BY K-PAD. VSS. PT STARTED ON LESS THAN 1000 ML FLUID RESTRICTION, TOLERATING WELL. PT REMAINS ON 2 L/MIN VIA NC FOR SOB AND MAINTAIN SATURATION LEVELS - PT DENIES SOB T/O SHIFT. BLE EDEMEA +3, PT REPORTS IMPROVING SINCE ADMISSION. NO BM X5 DAYS, STARTED ON BOWEL CARE. APPETITE GOOD. PT CURRENTLY RESTING IN HOSPITAL BED WITH BED IN LOWEST POSITION AND CALL LIGHT WITHIN REACH. PT USES CALL LIGHT APPROPRIATELY. FAMILY AT BEDSIDE.
[2024-05-26] MEDS ORDERED: Docusate Sodium 100 MG Cap PO SCH (21:00)
[2024-05-26] MEDS ORDERED: Sennosides 8.6 MG Tab PO SCH (21:00)
[2024-05-27 03:02] VITALS: BP 105/66
[2024-05-27 06:36] LABS: BASOPHILS ABSOLUTE AUTO 0.03 K/mm3 (0.00-0.23); BASOPHILS PERCENT AUTO 1 % (0-2); EOSINOPHILS ABSOLUTE AUTO 0.14 K/mm3 (0.00-0.68); EOSINOPHILS PERCENT AUTO 3 % (0-6); Hemoglobin 8.1 g/dL (13.5-17.5); IMMATURE GRAN ABSOLUTE AUTO 0.01 K/mm3 (0.00-0.10); IMMATURE GRAN PERCENT AUTO 0 % (0-1); LYMPHOCYTES ABSOLUTE AUTO 0.82 K/mm3 (0.84-5.20); LYMPHOCYTES PERCENT AUTO 17 % (21-46); MONOCYTES ABSOLUTE AUTO 0.58 K/mm3 (0.16-1.47); MONOCYTES PERCENT AUTO 12 % (4-13); Mean Corpuscular Volume 87 fL (80-100); Mean Platelet Volume 9.3 fL (9.1-12.4); NEUTROPHILS ABSOLUTE AUTO 3.32 K/mm3 (1.96-9.15); NEUTROPHILS PERCENT AUTO 68 % (41-73); Platelet Count 100 K/mm3 (150-400); RDW Coefficient Variation 20.8 % (11.7-14.2); RDW Standard Deviation 56.4 fL (35.1-46.3); Red Blood Cell Count 3.12 M/mm3 (4.30-5.90)
[2024-05-27 07:07] LABS: Albumin, Blood 2.9 g/dL (3.4-5.0); Anion Gap 9 mmol/L (3-11); Blood Urea Nitrogen 48 mg/dL (8-24); Bun/Creatinine Ratio 28.2 (12.0-20.0); CO2, Blood 34 mmol/L (21-32); Calcium, Blood 9.1 mg/dL (8.5-10.1); Chloride, Blood 96 mmol/L (98-108); Glomerular Filtration Rate 46 (60-); Glucose, Blood 109 mg/dL (70-99); Magnesium, Blood 1.9 mg/dL (1.6-2.4); Phosphorus, Blood 2.7 mg/dL (2.5-4.9); Potassium, Blood 3.9 mmol/L (3.5-5.5); Sodium, Blood 135 mmol/L (136-145)
[2024-05-27 07:17] VITALS: BP 108/63
[2024-05-27] MEDS ORDERED: Aspirin 81 MG Chew PO SCH (09:00)
[2024-05-27 11:15] VITALS: BP 110/65
[2024-05-27 15:34] VITALS: BP 104/64
--- NOTE | 2024-05-27 18:42 | NUR ---
SHIFT SUMMARY PT AOX4, COOPERATIVE, ABLE TO MAKE NEEDS KNOWN. PT BEEN IN BED FOR MOST OF DAY, WORKED WITH THERAPY TODAY. TOLERATING PO AND IV MEDICATION APPROPRIATELY. 1000ML FLUID RESTRICTION, PT ENJOYS ONLY ICE. NO OTHER ACUTE EVENTS TOOK PLACE THIS SHIFT. BED IN LOWEST POSITION, CALL LIGHT WITHIN REACH.
[2024-05-27 20:10] VITALS: BP 125/69
[2024-05-28 00:06] VITALS: BP 111/95
[2024-05-28 04:09] VITALS: BP 114/67
--- NOTE | 2024-05-28 05:26 | NUR ---
SHIFT SUMMARY PT ALERT AND ORIENTED TIMES 4. PT IS FULL CODE, HAS TELE WITH SINUS RHYTHM 73 BBB W/PVC. PT ON FLUID RESTRICTION OF 1000ML. PT APPEARED TO SLEEP ON AND OFF THROUGH THE NIGHT. PT IS ABLE TO AMBULATE TO TOILET INDEPENDENTLY. PT HAS +2-3 EDEMA BILATERALLY. BED IN LOW POSITION, RAILS TIMES TWO, CALL LIGHT WITHIN REACH.
[2024-05-28 06:05] LABS: BASOPHILS ABSOLUTE AUTO 0.03 K/mm3 (0.00-0.23); BASOPHILS PERCENT AUTO 1 % (0-2); EOSINOPHILS ABSOLUTE AUTO 0.11 K/mm3 (0.00-0.68); EOSINOPHILS PERCENT AUTO 3 % (0-6); Hematocrit 27.4 % (37.0-53.0); Hemoglobin 8.2 g/dL (13.5-17.5); IMMATURE GRAN ABSOLUTE AUTO 0.01 K/mm3 (0.00-0.10); IMMATURE GRAN PERCENT AUTO 0 % (0-1); LYMPHOCYTES ABSOLUTE AUTO 0.72 K/mm3 (0.84-5.20); LYMPHOCYTES PERCENT AUTO 16 % (21-46); MONOCYTES ABSOLUTE AUTO 0.58 K/mm3 (0.16-1.47); MONOCYTES PERCENT AUTO 13 % (4-13); Mean Corpuscular HGB 26.2 pg (26.0-34.0); Mean Corpuscular HGB Conc 29.9 g/dL (31.5-36.5); Mean Corpuscular Volume 88 fL (80-100); Mean Platelet Volume 9.9 fL (9.1-12.4); NEUTROPHILS ABSOLUTE AUTO 2.99 K/mm3 (1.96-9.15); NEUTROPHILS PERCENT AUTO 67 % (41-73); Platelet Count 108 K/mm3 (150-400); RDW Coefficient Variation 21.7 % (11.7-14.2); Red Blood Cell Count 3.13 M/mm3 (4.30-5.90); White Blood Cell Count 4.44 K/mm3 (4.00-11.30)
[2024-05-28 06:32] LABS: Albumin, Blood 3.1 g/dL (3.4-5.0); Anion Gap 9 mmol/L (3-11); Blood Urea Nitrogen 45 mg/dL (8-24); Bun/Creatinine Ratio 25.3 (12.0-20.0); CO2, Blood 32 mmol/L (21-32); Calcium, Blood 9.4 mg/dL (8.5-10.1); Chloride, Blood 98 mmol/L (98-108); Creatinine, Blood 1.78 mg/dL (0.60-1.20); Glomerular Filtration Rate 43 (60-); Glucose, Blood 112 mg/dL (70-99); Potassium, Blood 4.1 mmol/L (3.5-5.5); Sodium, Blood 135 mmol/L (136-145)
[2024-05-28] MEDS ORDERED: Potassium Chloride 20 MEQ TabCR PO SCH (08:00)
[2024-05-28] MEDS ORDERED: ASPI81CH PO (12:09)
[2024-05-28] MEDS ORDERED: KLOR-CON 1010 ME9 PO (12:10)
[2024-05-28] MEDS ORDERED: ALDACTONE25 MG PO (12:11)
--- NOTE | 2024-05-28 12:41 | NUR ---
DISCHARGE PT AOX4, COOPERATIVE, ABLE TO MAKE NEEDS KNOWN. THIS RN WENT OVER DC PAPERWORK WITH PT, AND DC'D TELE AND IV WITHOUT COMPLICATIONS. NEW MEDS SENT TO [facility]. YARN DYER WHEELED PT DOWN TO PT ENTRANCE VIA WHEELCHAIR WHERE FAMILY TO TRANSPORT PT HOME.
[2024-05-28] MEDS ORDERED: Bumetanide 1 MG Tab PO SCH (18:00)
[2024-05-28] MEDS ORDERED: Spironolactone 25 MG Tab PO SCH (18:00)
[2024-05-29 16:28] LABS: ALBUMIN %,URINE 51.7 %; ALPHA-1 %,URINE 2.5 %; ALPHA-2 %,URINE 7.2 %; BETA GLOBULIN %,URINE 18.7 %; GAMMA GLOBULIN %,URINE 19.9 %; HOURS COLLECTED 24 hr; TOTAL VOLUME 3900 mL
== END 2024-05-28 12:44 | disposition home or self-care (01) | DRG 682 ==
LOC: ER 12:47 → MEDS 15:42 → ERHOLD 15:42 → MEDS 17:59
PROVIDERS: Emergency Medicine; Family Medicine; Internal Medicine Nephrology; Surgery; ADMIT Internal Medicine
PROC: 30233N1 Transfusion of Nonautologous Red Blood Cells into Peripheral Vein, Percutaneous Approach (ICD-10-PCS; principal; 2024-05-20)
DX: N17.9 Acute kidney failure, unspecified (principal); G92.8 Other toxic encephalopathy; I50.33 Acute on chronic diastolic (congestive) heart failure; E24.9 Cushing's syndrome, unspecified; E87.1 Hypo-osmolality and hyponatremia; I13.0 Hypertensive heart and chronic kidney disease with heart failure and stage 1 through stage 4 chronic kidney disease, or unspecified chronic kidney disease; N39.0 Urinary tract infection, site not specified; F10.239 Alcohol dependence with withdrawal, unspecified; N25.81 Secondary hyperparathyroidism of renal origin; L40.9 Psoriasis, unspecified; I25.10 Atherosclerotic heart disease of native coronary artery without angina pectoris; E78.5 Hyperlipidemia, unspecified; F17.290 Nicotine dependence, other tobacco product, uncomplicated; E87.6 Hypokalemia; R73.03 Prediabetes; D63.1 Anemia in chronic kidney disease; Z96.651 Presence of right artificial knee joint; I35.0 Nonrheumatic aortic (valve) stenosis; K70.30 Alcoholic cirrhosis of liver without ascites; I48.0 Paroxysmal atrial fibrillation; E66.9 Obesity, unspecified; N18.30 Chronic kidney disease, stage 3 unspecified; Z79.02 Long term (current) use of antithrombotics/antiplatelets; Z79.01 Long term (current) use of anticoagulants; Z91.048 Other nonmedicinal substance allergy status; Z79.899 Other long term (current) drug therapy; Z88.8 Allergy status to other drugs, medicaments and biological substances; Z95.5 Presence of coronary angioplasty implant and graft; Z68.36 Body mass index [BMI] 36.0-36.9, adult
CPT/HCPCS: 0241U; 36415; 36430; 71045; 76770; 80048; 80053; 80069; 81001; 82088; 82248; 82272; 82533; 82550; 82728; 83516; 83540; 83550; 83735; 83880; 83930; 84100; 84156; 84166; 84244; 84300; 84443; 84484; 84550; 85014; 85018; 85025; 85610; 86039; 86334; 86335; 86850; 86900; 86901; 86923; 87077; 87086; 87186; 93005; 93010; 93306; 94760; 96365; 97116; 97161; 99285-25; A9270; J0696; J0881; J1644; J2060; J2470; J2916; J3411; J3480; J7030; J7040; P9016; P9047

== ENCOUNTER 2024-06-15 13:14 | Emergency (ER) | payer BC ==
[~2024-06-15] VITALS: Ht 185.4 cm; Wt 111.1 kg
[~2024-06-15 13:14] MED LIST changes: +ALDACTONE25 MG PO; +KLOR-CON 1010 ME9 PO; +METO5 PO; +THERA-D2000 UNIT PO
[2024-06-15 14:34] LABS: International Normalized Ratio 1.23
[2024-06-15 14:38] LABS: Albumin, Blood 3.1 g/dL (3.4-5.0); Albumin/Globulin Ratio 0.8 (0.8-1.8); Bilirubin, Total 1.5 mg/dL (0.1-1.0); Bun/Creatinine Ratio 26.8 (12.0-20.0); Calcium, Blood 8.7 mg/dL (8.5-10.1); Creatinine, Blood 1.42 mg/dL (0.60-1.20); Potassium, Blood 4.4 mmol/L (3.5-5.5); Total Protein, Blood 7.1 g/dL (6.4-8.2)
[2024-06-15 16:06] LABS: BASOPHILS ABSOLUTE AUTO 0.05 K/mm3 (0.00-0.23); BASOPHILS PERCENT AUTO 1 % (0-2); EOSINOPHILS PERCENT AUTO 6 % (0-6); Hematocrit 25.2 % (37.0-53.0); Hemoglobin 7.8 g/dL (13.5-17.5); IMMATURE GRAN ABSOLUTE AUTO 0.01 K/mm3 (0.00-0.10); IMMATURE GRAN PERCENT AUTO 0 % (0-1); LYMPHOCYTES ABSOLUTE AUTO 0.61 K/mm3 (0.84-5.20); LYMPHOCYTES PERCENT AUTO 13 % (21-46); MONOCYTES ABSOLUTE AUTO 0.69 K/mm3 (0.16-1.47); MONOCYTES PERCENT AUTO 15 % (4-13); Mean Corpuscular HGB 27.4 pg (26.0-34.0); Mean Corpuscular Volume 88 fL (80-100); Mean Platelet Volume 8.9 fL (9.1-12.4); NEUTROPHILS PERCENT AUTO 65 % (41-73); Platelet Count 129 K/mm3 (150-400); RDW Coefficient Variation 23.2 % (11.7-14.2); RDW Standard Deviation 75.1 fL (35.1-46.3); Red Blood Cell Count 2.85 M/mm3 (4.30-5.90); White Blood Cell Count 4.76 K/mm3 (4.00-11.30)
[2024-06-15 17:09] VITALS: BP 124/58
== END 2024-06-15 18:50 | disposition home or self-care (01) ==
LOC: ER 13:14
PROVIDERS: Physician Assistant
DX: H11.31 Conjunctival hemorrhage, right eye (principal); I50.30 Unspecified diastolic (congestive) heart failure; I11.0 Hypertensive heart disease with heart failure; F17.220 Nicotine dependence, chewing tobacco, uncomplicated
CPT/HCPCS: 70450; 80053; 85025; 85610; 99284-25

== ENCOUNTER 2024-07-03 03:57 | Emergency (ER) | payer BC ==
[~2024-07-03] VITALS: Ht 188 cm; Wt 90.7 kg
[2024-07-03] MEDS ORDERED: NS 1,000 ML IV SCH ×2 (04:05→08:05)
[2024-07-03 04:32] LABS: Calcium, Ionized (POC) 1.11 mmol/L (1.10-1.46); Chloride (POC) 102 mmol/L (98-108); Creatinine (POC) 6.8 mg/dL (0.8-1.3); Glucose (ISTAT POC) 100 mg/dL (70-99); Hemoglobin (POC) 9.2 g/dL (13.5-17.5); Potassium (POC) 5.3 mmol/L (3.5-5.5); Sodium (POC) 132 mmol/L (135-148); Total CO2 (POC) 19 mmol/L (21-32)
[2024-07-03 04:33] LABS: BASOPHILS ABSOLUTE AUTO 0.05 K/mm3 (0.00-0.23); BASOPHILS PERCENT AUTO 1 % (0-2); EOSINOPHILS ABSOLUTE AUTO 0.49 K/mm3 (0.00-0.68); EOSINOPHILS PERCENT AUTO 7 % (0-6); Hematocrit 25.9 % (37.0-53.0); Hemoglobin 7.8 g/dL (13.5-17.5); IMMATURE GRAN ABSOLUTE AUTO 0.02 K/mm3 (0.00-0.10); IMMATURE GRAN PERCENT AUTO 0 % (0-1); LYMPHOCYTES ABSOLUTE AUTO 0.89 K/mm3 (0.84-5.20); LYMPHOCYTES PERCENT AUTO 13 % (21-46); MONOCYTES ABSOLUTE AUTO 0.73 K/mm3 (0.16-1.47); MONOCYTES PERCENT AUTO 11 % (4-13); Mean Corpuscular HGB 26.7 pg (26.0-34.0); Mean Corpuscular HGB Conc 30.1 g/dL (31.5-36.5); Mean Corpuscular Volume 89 fL (80-100); Mean Platelet Volume 9.3 fL (9.1-12.4); NEUTROPHILS ABSOLUTE AUTO 4.49 K/mm3 (1.96-9.15); NEUTROPHILS PERCENT AUTO 68 % (41-73); Platelet Count 151 K/mm3 (150-400); RDW Standard Deviation 73.3 fL (35.1-46.3); Red Blood Cell Count 2.92 M/mm3 (4.30-5.90); White Blood Cell Count 6.67 K/mm3 (4.00-11.30)
[2024-07-03 04:49] LABS: International Normalized Ratio 1.26; Prothrombin Time Results 13.3 Sec (9.7-11.5)
[2024-07-03 05:07] LABS: Alanine Aminotransfer (ALT/SGP 24 U/L (12-78); Albumin, Blood 3.1 g/dL (3.4-5.0); Albumin/Globulin Ratio 0.7 (0.8-1.8); Alk Phos 93 U/L (50-136); Anion Gap 16 mmol/L (3-11); Aspartate Aminotrans (AST/SGOT 28 U/L (12-37); Bilirubin, Total 1.5 mg/dL (0.1-1.0); Blood Urea Nitrogen 81 mg/dL (8-24); Bun/Creatinine Ratio 13.3 (12.0-20.0); CO2, Blood 18 mmol/L (21-32); Calcium, Blood 8.7 mg/dL (8.5-10.1); Chloride, Blood 102 mmol/L (98-108); Creatinine, Blood 6.07 mg/dL (0.60-1.20); Ethanol (Alcohol), Blood, Med <3 mg/dL; Free Thyroxine 1.25 ng/dL (0.70-1.60); Globulin, Blood 4.3 g/dL (2.2-4.0); Glomerular Filtration Rate 10 (60-); Glucose, Blood 105 mg/dL (70-99); Potassium, Blood 5.2 mmol/L (3.5-5.5); Sodium, Blood 131 mmol/L (136-145); Total Protein, Blood 7.4 g/dL (6.4-8.2)
[2024-07-03 05:49] LABS: Base Excess Venous -7.5 mmol/L; Bicarbonate Venous 18.8 mmol/L (24.0-30.0); PCO2 Venous 29.5 mmHg (38-42); pH Blood Venous 7.38 (7.34-7.37)
[2024-07-03] MEDS ORDERED: Pantoprazole Sodium 40 MG Injection IV ONE (05:50)
[2024-07-03] MEDS ORDERED: CefTRIAXone Sodium 1,000 MG in NS 100 ML IV ONE (05:50)
[2024-07-03] MEDS ORDERED: Lactulose 20 GM/30 ML UDC PO ONE (06:00)
[2024-07-03] MEDS ORDERED: CONSTULOSE10 GM/155 PO (08:20)
[2024-07-03] MEDS ORDERED: Octreotide Acetate 50 MCG in NS 50 ML IV ONE (08:45)
[2024-07-03] MEDS ORDERED: Lactulose 20 GM/30 ML UDC PR ONE (08:45)
[2024-07-03] MEDS ORDERED: Octreotide Acetate 500 MCG in NS 250 ML IV SCH (08:45)
[2024-07-03 10:20] VITALS: BP 92/37
== END 2024-07-03 10:40 | disposition short-term general hospital (02) ==
LOC: ER 03:57
PROVIDERS: Emergency Medicine
DX: G92.8 Other toxic encephalopathy (principal); K76.82 Hepatic encephalopathy; E72.20 Disorder of urea cycle metabolism, unspecified; D64.9 Anemia, unspecified; K70.30 Alcoholic cirrhosis of liver without ascites; R79.89 Other specified abnormal findings of blood chemistry; I95.9 Hypotension, unspecified; R00.1 Bradycardia, unspecified; I13.0 Hypertensive heart and chronic kidney disease with heart failure and stage 1 through stage 4 chronic kidney disease, or unspecified chronic kidney disease; I50.30 Unspecified diastolic (congestive) heart failure; N18.30 Chronic kidney disease, stage 3 unspecified; I25.10 Atherosclerotic heart disease of native coronary artery without angina pectoris; F17.220 Nicotine dependence, chewing tobacco, uncomplicated; Z88.8 Allergy status to other drugs, medicaments and biological substances; Z91.09 Other allergy status, other than to drugs and biological substances; Z79.899 Other long term (current) drug therapy; Z79.82 Long term (current) use of aspirin; Z95.5 Presence of coronary angioplasty implant and graft
CPT/HCPCS: 36430; 36556; 70450; 71045; 74176; 80047; 80053; 80320; 82140; 82803; 83880; 84439; 84443; 85014; 85025; 85610; 85730; 86850; 86900; 86901; 86923; 93005; 93010; 96365-59; 96366-59; 96368; 96375-59; 99285-25; A9270; C1751; J0696; J2354; J2470; J7030; J7050; J7060; P9016